=== PATIENT | male | born 1945 | race Caucasian/White ===

== ENCOUNTER → 2018-05-13 06:59 | Outpatient (CLI) | payer MEDICARE, OTHER, SELFPAY ==
[2018-05-13 08:12] LABS: Alanine Aminotransferase 82 IU/L (21-72); Albumin 4.4 g/dL (3.5-5.0); Albumin Globulin Ratio 1.5 (1.0-2.8); Alkaline Phosphatase 71 U/L (38-126); Aspartate Aminotransferase 58 IU/L (17-59); Bilirubin Total 0.7 mg/dL (0.2-1.3); Blood Urea Nitrogen 12 mg/dL (9-20); Calcium 9.1 mg/dL (8.4-10.2); Carbon Dioxide 27 mmol/L (22-32); Chloride 103 mmol/L (98-107); Cholesterol 196 mg/dL (140-199); Estimated Glomerular Filt Rate > 60.0 mL/min (>60); Globulin 2.9 g/dL (1.7-4.1); Glucose 104 mg/dL (80-110); HDL Cholesterol 26 mg/dL (40-60); HEMOLYSIS 37 (0-50); LDL Cholesterol Calculated 132 mg/dL (<100); Potassium 4.4 mmol/L (3.4-5.1); Sodium 144 mmol/L (137-145); Total Protein 7.3 g/dL (6.3-8.2); Triglycerides 188 mg/dL (35-150)
[2018-05-13 08:14] LABS: Add Manual Diff / Slide Review NO; Basophils Percent Auto 0.7 % (0-2); Eosinophils Percent Auto 1.1 % (2-4); Hemoglobin 16.4 g/dL (13.5-17.5); Lymphocytes Percent Auto 28.4 % (25-40); Mean Corpuscular HGB Conc 34.2 % (30-36); Mean Corpuscular Hemoglobin 31.4 PG (26-34); Mean Corpuscular Volume 91.9 fL (80-100); Monocytes Percent Auto 10.4 % (3-14); Neutrophils Absolute Auto 3800 /uL (3000-5900); Neutrophils Percent Auto 59.4 % (50-75); Platelet Count 188 X10^3/uL (150-400); Red Blood Cell Count 5.22 X10^6/uL (4.5-5.9); Red Cell Distribution Width 13.7 % (11.6-14.8); White Blood Cell Count 6.3 X10^3/uL (4.5-11.0)
[2018-05-13 08:33] LABS: Prostate Specific Antigen Scrn 3.05 ng/mL (0.1-4.0)
[2018-05-13 09:08] LABS: Thyroid Stimulating Hormone 4.99 uIU/mL (0.47-4.68)
[2018-05-13 09:27] LABS: Hep C Virus Ab w/Reflex Quant NEGATIVE s/c (NEGATIVE)
== END ==
PROVIDERS: Family Provider Family Medicine; PCP Family Medicine; Visit Provider Family Medicine
DX: E78.5 Hyperlipidemia, unspecified (principal); I10 Essential (primary) hypertension; N40.1 Benign prostatic hyperplasia with lower urinary tract symptoms; Z00.00 Encounter for general adult medical examination without abnormal findings; Z11.59 Encounter for screening for other viral diseases; Z12.5 Encounter for screening for malignant neoplasm of prostate
CPT/HCPCS: 36415; 80053; 80061; 84443; 85025; 86803; G0103

== ENCOUNTER 2018-05-27 14:23 | Emergency (ER) | payer MEDICARE, OTHER, SELFPAY ==
[2018-05-27 14:23] VITALS: BP 151/85; PULSE 87; RESP 16; TEMP 36.9; O2SAT 96; BMI 44.7
--- NOTE | 2018-05-27 15:08 | DI.CT.S_ITS ---
PROCEDURE: CT KIDNEY URETER BLADDER (KUB) INDICATIONS: L flank pain TECHNIQUE: Noncontrast 5 mm thick sections acquired from the diaphragms to the symphysis. 5 mm thick coronal and sagittal reformats were then performed. For radiation dose reduction, the following was used: automated exposure control, adjustment of mA and/or kV according to patient size. COMPARISON: [facility], CT, KIDNEY/ URETER/BLADDER, 03/25/2017, 22:42. [facility], CT, IVP (ABD & PEL WWO CONTRAST), 12/18/2012, 11:03. FINDINGS: Image quality: Excellent. Lung bases: Lung bases are clear. Heart size is normal. Urinary system: Parenchymal atrophy of the left kidney is again identified with associated severe hydronephrosis and probable peripelvic cysts. There are bilateral nonobstructing renal calculi. No hydronephrosis the right kidney is evident. There is dilatation of the proximal left ureter, which is noted to contain a small calculus measuring approximately 3 x 3 x 3 mm (image 55, series 2). The previously seen large proximal left ureteral calculus is no longer evident. No ureteral calculi are evident on the right. There are no bladder calculi. Mild prominence of the urinary bladder wall is present. Other solid organs: The liver is diffusely hypodense when compared to the spleen. Areas of fatty sparing. The present in the region of the gallbladder fossa. No intrahepatic or extrahepatic biliary dilatation is evident. The spleen and adrenals are unremarkable. The pancreas is within normal limits. Peritoneum and bowel: Unenhanced bowel loops demonstrate normal wall thickness and caliber. No free fluid or air. No loculated fluid collections are seen. There is distal colonic diverticulosis. Nodes and vessels: No retroperitoneal or mesenteric adenopathy by size criteria. Aorta and inferior vena cava are normal in caliber. There is aortic atherosclerosis. Abdominal wall: No ventral hernias. Pelvis: No free pelvic fluid. No inguinal hernias or adenopathy. Bones: No suspicious bony lesions. No vertebral body compression fractures. Age-appropriate degenerative changes are evident involving the spine and pelvic joints. IMPRESSION: 1. 3 mm proximal left ureteral calculus at the ureteropelvic junction with corresponding severe hydronephrosis. 2. Bilateral renal calculi. 3. Prominent hepatic steatosis. 4. No bowel obstruction. Dictated by: Tolu Thorne M.D. on 05/27/2018 at 14:30 Approved by: Tolu Thorne M.D. on 05/27/2018 at 14:40
[2018-05-27] MEDS: HYDROMORPHONE 1 MG INJ IV (15:43)
[2018-05-27] MEDS: ONDANSETRON 4 MG/2 ML INJ IV (15:44)
[2018-05-27] MEDS: KETOROLAC 60 MG/2 ML VIAL 30 MG IV (15:44)
[2018-05-27] MEDS: SODIUM CHLORIDE 0.9% 1,000 ML 1000 ML IV (15:44)
[2018-05-27 15:51] LABS: Appearance Urine UA CLEAR; Bilirubin Urine UA NEGATIVE (NEGATIVE); Color Urine UA YELLOW; Glucose Urine UA NEGATIVE (Normal); Ketones Urine UA NEGATIVE (NEGATIVE); Leukocyte Esterase Urine UA NEGATIVE (NEGATIVE); Nitrite Urine UA NEGATIVE (Negative); Occult Blood Urine UA TRACE-LYSED (Negative); Protein Urine UA NEGATIVE (Negative); Urobilinogen Urine UA 0.2 E.U./dL (0.2)
[2018-05-27 16:00] LABS: RBC Urine 0-1/HPF (0-5/HPF)
[2018-05-27 16:01] LABS: Bacteria Urine Occasional (0-1); Culture Indicated Urine Specimen Cultured; Mucus Urine 1+ (Negative); Squamous Epithelial Cell Urine 0-1 /HPF; WBC Urine 5-10/HPF (0-5/HPF)
--- NOTE | 2018-05-27 16:26 | ED.MALEGU ---
HPI - Male Genitourinary General Chief complaint: Urogenital-Male Stated complaint: kidney stones Time Seen by Provider: 05/27/18 14:35 Source: patient Mode of arrival: ambulatory Limitations: no limitations History of Present Illness HPI Narrative: Patient presents the emergency department complaining of left flank pain. He states this feels like a kidney stone, of which he has had many in the past. Patient denies any dysuria, fever, or vomiting. He states he feels slightly nauseated. Patient has not seen a urologist in some time, although he does note that he has been treated with lithotripsy in the past for large stones. States otherwise, he usually lets the stones pass on their own. No other complaints at this time. Severity scale (1-10): 5 Quality: aching Relieving factors: none Exacerbating factors: none Related Data Home Medications Medication Instructions Recorded Confirmed aspirin 81 mg PO QDAY #0 03/26/17 hydrocodone-acetaminophen [[place]] 1 tab PO PRN #0 03/26/17 fexofenadine 180 mg PO DAILY 05/27/18 05/27/18 Previous Rx's Medication Instructions Recorded hydrocodone-acetaminophen 2 tab PO Q4-6H PRN #14 tab 05/27/18 ondansetron 4 mg PO Q6-8H PRN #10 tab 05/27/18 Allergies Allergy/AdvReac Type Severity Reaction Status Date / Time grass pollen [GRASS POLLEN] Allergy Mild RUNNY NOSE Unverified 10/16/17 13:09 Fvupsot-Kcv-Tdo Reductase Allergy Verified 05/27/18 14:33 Inhibitor Review of Systems Review of Systems All systems reviewed & are unremarkable except as noted in HPI and below Constitutional Denies chills, Denies fever(s), Denies lethargy and Denies weakness Eyes Denies change in vision, Denies eye discharge, Denies irritation and Denies loss of vision ENT Ears, Nose, Mouth, and Throat: Denies change in voice, Denies neck pain and Denies sore throat Cardiovascular Denies chest pain, Denies irregular heart rhythm, Denies lightheadedness, Denies palpitations, Denies dyspnea, Denies dyspnea on exertion and Denies orthopnea Respiratory Denies cough, Denies dyspnea, Denies dyspnea on exertion and Denies wheezing Gastrointestinal Gastrointestinal: Denies abdominal pain, Denies change in bowel habits, Denies diarrhea, Denies nausea and Denies vomiting Genitourinary Denies hematuria, Denies flank pain, Denies urinary incontinence and Denies urinary urgency Musculoskeletal Reports back pain (Left flank) and Denies neck pain Integumentary/Breasts Denies pruritus, Denies erythema, Denies rash and Denies wounds Neurologic Denies confusion, Denies loss of vision and Denies weakness Psychiatric Denies anxiety, Denies confusion, Denies depression, Denies homicidal ideation and Denies suicidal ideation Endocrine Denies palpitations Hematologic/Lymphatic Denies easy bruising Allergic/Immunologic Denies wheezing PFSH Medical History Kidney stones (Acute) Surgical History H/O lithotripsy (Acute) Social History Smoking Status: Former smoker Exam Initial Vital Signs Initial Vital Signs: Vital Signs Temperature 98.4 F 05/27/18 14:23 Pulse Rate 87 05/27/18 14:23 Respiratory Rate 16 05/27/18 14:23 Blood Pressure 151/85 H 05/27/18 14:23 Pulse Oximetry 96 05/27/18 14:23 Const General: cooperative and well developed Nutritional Appearance: well nourished Orientation: alert, awake, oriented x3 and not confused [facility] Head: normocephalic and atraumatic Ears: external ears normal Nose: external nose normal and No nasal discharge Face and sinus: face symmetric and No dry mucous membranes Mouth: oral mucosae normal and moist mucous membranes Teeth and gingiva: dentition normal Eyes General: appearance normal, both eyes and all related structures Eyelids: eyelids normal Conjunctivae: conjunctivae normal Sclera: sclerae normal Pupils: PERRL EOM: EOM intact bilaterally Neck Neck: normal visual inspection, trachea midline, No lymphadenopathy, No midline deformity and No JVD Lymphatic: No lymphedema Chest Chest: normal inspection of the chest Resp Effort & Inspection: normal respiratory effort, able to speak in complete sentences, no respiratory distress and no use of accessory muscles Auscultation: clear to auscultation bilaterally, no rales, no rhonchi and no wheezes Cardio Rate: regular rate Rhythm: regular rhythm Heart Sounds: no click, no gallops, no murmurs and no rubs Pulses: normal peripheral pulses GI Inspection: non-distended Palpation: soft, no hepatosplenomegaly, No guarding, No pulsatile mass and No tender Back/Spine/Pelvis Back: No CVA tenderness Cervical Spine: cervical ROM normal and No pain with cervical ROM Thoracic/Lumbar Spine: thoracic and lumbar spine normal to inspection Skin General: no rashes or lesions noted, No jaundice and No petechiae Neuro General: alert, oriented x3, gait normal and no focal motor deficits Speech: speech normal Extrem General: full ROM, no clubbing, cyanosis or edema, no pedal edema and no calf tenderness Psych Appearance: well kempt Mental Status: mental status grossly normal Attitude: cooperative Thought Content: normal and suicidality Judgment: judgment good Course Course Narrative: Patient is given a L of normal saline, as well as treated symptomatically with Zofran, Toradol, and Dilaudid. He was worked up with a CT scan of the abdomen and pelvis without contrast as well as a urinalysis. Orders Ordered: Discontinued Medications Hydromorphone HCl (Dilaudid) 1 mg IV NOW ONE Stop: 05/27/18 15:09 Last Admin: 05/27/18 15:43 Dose: 1 mg Sodium Chloride (Normal Saline 0.9%) 1,000 mls @ 1,000 mls/hr IV BOLUS ONE Stop: 05/27/18 16:07 Last Infusion: 05/27/18 16:30 Dose: 0 mls/hr Admin: 05/27/18 15:44 Dose: 1,000 mls/hr Ketorolac Tromethamine (Toradol) 30 mg IV NOW ONE Stop: 05/27/18 15:09 Last Admin: 05/27/18 15:44 Dose: 30 mg Ondansetron HCl (Zofran) 4 mg IV NOW ONE Stop: 05/27/18 15:09 Last Admin: 05/27/18 15:44 Dose: 4 mg Vital Signs - 8 hr 05/27/18 14:23 Temperature 98.4 F Pulse Rate 87 Respiratory Rate 16 Blood Pressure 151/85 H Pulse Oximetry 96 MDM - Male Genitourinary Medical Records Attestation: I reviewed the patient's medical records. Lab Data Attestation: I reviewed the patient's lab results. Lab Results 11/20/18 Range/Units 15:40 Urine Color Yellow Urine Appearance Clear Urine pH 5.0 (4.5-8.0) Ur Specific [place] 1.020 (1.000-1.035) Urine Protein Negative (Negative) Urine Glucose (UA) Negative (Normal) g/dL Urine Ketones Negative (NEGATIVE) Urine Occult Blood Trace-lysed (Negative) Urine Nitrate Negative (Negative) Urine Bilirubin Negative (NEGATIVE) Urine Urobilinogen 0.2 (0.2) E.U./dL Ur Leukocyte Esterase Negative (NEGATIVE) Urine RBC 0-1/hpf (0-5/HPF) Urine WBC 5-10/hpf H (0-5/HPF) Ur Squamous Epith Cells 0-1 /hpf Urine Bacteria Occasional (0-1) (None) Urine Mucus 1+ H (Negative) Ur Culture Indicated? Specimen cultured Micro UA Comment Not Reportable Imaging Data CT scan - abdomen: Radiologist's impression: PROCEDURE: CT KIDNEY URETER BLADDER (KUB) INDICATIONS: L flank pain TECHNIQUE: Noncontrast 5 mm thick sections acquired from the diaphragms to the symphysis. 5 mm thick coronal and sagittal reformats were then performed. For radiation dose reduction, the following was used: automated exposure control, adjustment of mA and/or kV according to patient size. COMPARISON: [facility], CT, KIDNEY/ URETER/BLADDER, 03/25/2017, 22:42. [facility], CT, IVP (ABD & PEL WWO CONTRAST), 12/18/2012, 11:03. FINDINGS: Image quality: Excellent. Lung bases: Lung bases are clear. Heart size is normal. Urinary system: Parenchymal atrophy of the left kidney is again identified with associated severe hydronephrosis and probable peripelvic cysts. There are bilateral nonobstructing renal calculi. No hydronephrosis the right kidney is evident. There is dilatation of the proximal left ureter, which is noted to contain a small calculus measuring approximately 3 x 3 x 3 mm (image 55, series 2). The previously seen large proximal left ureteral calculus is no longer evident. No ureteral calculi are evident on the right. There are no bladder calculi. Mild prominence of the urinary bladder wall is present. Other solid organs: The liver is diffusely hypodense when compared to the spleen. Areas of fatty sparing. The present in the region of the gallbladder fossa. No intrahepatic or extrahepatic biliary dilatation is evident. The spleen and adrenals are unremarkable. The pancreas is within normal limits. Peritoneum and bowel: Unenhanced bowel loops demonstrate normal wall thickness and caliber. No free fluid or air. No loculated fluid collections are seen. There is distal colonic diverticulosis. Nodes and vessels: No retroperitoneal or mesenteric adenopathy by size criteria. Aorta and inferior vena cava are normal in caliber. There is aortic atherosclerosis. Abdominal wall: No ventral hernias. Pelvis: No free pelvic fluid. No inguinal hernias or adenopathy. Bones: No suspicious bony lesions. No vertebral body compression fractures. Age-appropriate degenerative changes are evident involving the spine and pelvic joints. IMPRESSION: 1. 3 mm proximal left ureteral calculus at the ureteropelvic junction with corresponding severe hydronephrosis. 2. Bilateral renal calculi. 3. Prominent hepatic steatosis. 4. No bowel obstruction. Dictated by: Tolu Thorne M.D. on 05/27/2018 at 14:30 Approved by: Tolu Thorne M.D. on 05/27/2018 at 14:40 MDM Narrative Medical decision making narrative: patient was found to have a 3 mm left ureteral calculus at the ureteropelvic junction with hydronephrosis. I discussed with the patient that he will need to follow up to make sure that this is passing appropriately. Based on the size of the stone, it should be expected to pass without difficulty on its own. However, if the patient has not passed the stone are continues to be symptomatic after 1 week, he should follow-up with urology, or very least, his primary care physician. Patient is instructed to drink plenty of fluids. Discharge Plan Departure Patient Disposition: Home Clinical Impression: Calculus of distal left ureter Discharge Date/Time: 05/27/18 17:15 Interventions: ED Discharge Assessment Last Done: 05/27/18 17:14 Instructions: DI for Kidney Stones Activity Restrictions/Additional Instructions: Your CT scan shows a kidney stone that has traveled most of the way down your left ureter. This should be popping into your bladder soon. You may use the nausea and pain medication, as needed. Prescriptions: New hydrocodone-acetaminophen 5-325 mg tablet 2 tab PO Q4-6H PRN (Reason: pain) Qty: 14 RF: 0 ondansetron 4 mg tablet,disintegrating 4 mg PO Q6-8H PRN (Reason: nausea and vomiting) Qty: 10 RF: 0 No Action aspirin 81 MG tablet,delayed release (DR/EC) 81 mg PO QDAY Qty: 0 RF: 0 hydrocodone-acetaminophen [[place]] 5 MG/325 MG tablet 1 tab PO PRNQty: 0 RF: 0 fexofenadine 180 mg tablet 180 mg PO DAILY RF: 0 Referrals: Rafita Vang MD [Primary Care Provider] -
[2018-05-27 16:29] VITALS: BP 139/66; PULSE 80; RESP 18; O2SAT 99
[2018-05-27 17:14] VITALS: BP 137/70; PULSE 82; RESP 16; O2SAT 97
--- NOTE | 2018-05-27 17:14 | PC.NURSE ---
called spouse pat at [phone], and she is en route
--- NOTE | 2018-05-27 17:15 | PC.NURSE ---
dc with ua cup, strainer, urinal, into personal belonging bags.
== END 2018-05-27 17:15 | disposition home or self-care (01) ==
PROVIDERS: Emergency Provider Emergency Medicine; PCP Family Medicine
DX: N20.1 Calculus of ureter (principal)
CPT/HCPCS: 36591; 74176; 81001; 87086; 96361; 96374; 96375; 99283; 99284; J1170; J1885; J2405

== ENCOUNTER 2018-09-17 05:58 | Emergency (ER) | payer MEDICARE, OTHER, SELFPAY ==
[2018-09-17 06:01] VITALS: BP 136/62; PULSE 92; RESP 18; TEMP 36.9; O2SAT 94; BMI 44.0
--- NOTE | 2018-09-17 06:20 | ED.MALEGU ---
HPI - Male Genitourinary General Chief complaint: Urogenital-Male Stated complaint: KIDNEY AREA SWOLLEN, PAIN Time Seen by Provider: 09/17/18 06:00 Source: patient Mode of arrival: ambulatory Limitations: no limitations History of Present Illness HPI Narrative: 73-year-old male former smoker with history of hypertension and kidney stones presents with severe left flank pain gradually worsening over the past 2 weeks. He states he has a longstanding history of kidney stones and he has been trying to pass this 1 for 2 weeks. He denies fever or shaking chills. He is not dizzy or weak or lightheaded. He has been given Percocet by his primary care provider which are no longer helping with his discomfort. He has had lithotripsy in the past. He denies dysuria, frequency or urgency MD Complaint: dysuria Onset (ago): week(s) Duration: constant Location: left flank Severity: mild Quality: aching and burning Relieving factors: none Exacerbating factors: movement Reports denies other symptoms Related Data Home Medications Medication Instructions Recorded Confirmed aspirin 81 mg PO QDAY #0 03/26/17 hydrocodone-acetaminophen [[place]] 1 tab PO PRN #0 03/26/17 fexofenadine 180 mg PO DAILY 05/27/18 05/27/18 Previous Rx's Medication Instructions Recorded hydrocodone-acetaminophen 2 tab PO Q4-6H PRN #14 tab 05/27/18 ondansetron 4 mg PO Q6-8H PRN #10 tab 05/27/18 Allergies Allergy/AdvReac Type Severity Reaction Status Date / Time grass pollen [GRASS POLLEN] Allergy Mild RUNNY NOSE Verified 09/17/18 06:38 Iakvrud-Jso-Tzl Reductase Allergy Verified 09/17/18 06:38 Inhibitor Review of Systems Constitutional Denies chills, Denies fever(s), Denies lethargy and Denies weakness Eyes Denies change in vision, Denies eye discharge, Denies irritation and Denies loss of vision ENT Ears, Nose, Mouth, and Throat: Denies change in voice, Denies neck pain and Denies sore throat Cardiovascular Denies chest pain, Denies irregular heart rhythm, Denies lightheadedness, Denies palpitations, Denies dyspnea, Denies dyspnea on exertion and Denies orthopnea Respiratory Denies cough, Denies dyspnea, Denies dyspnea on exertion and Denies wheezing Gastrointestinal Gastrointestinal: Denies abdominal pain, Denies change in bowel habits, Denies diarrhea, Denies nausea and Denies vomiting Genitourinary Denies hematuria, Reports flank pain, Denies urinary incontinence and Denies urinary urgency Musculoskeletal Denies neck pain Integumentary/Breasts Denies pruritus, Denies erythema, Denies rash and Denies wounds Neurologic Denies confusion, Denies loss of vision and Denies weakness Psychiatric Denies anxiety, Denies confusion, Denies depression, Denies homicidal ideation and Denies suicidal ideation Endocrine Denies palpitations Hematologic/Lymphatic Denies easy bruising Allergic/Immunologic Denies wheezing [facility] Medical History Kidney stones (Acute) Surgical History H/O lithotripsy (Acute) Social History Smoking Status: Former smoker Social History Smoking Status: Former smoker Exam Narrative Exam Narrative: GENERAL: 73-year-old male appears stated age, morbid obesity, obviously uncomfortable rubbing his left flank HEAD: Atraumatic. Normocephalic. No temporal or scalp tenderness. EYES: Pupils equal round and reactive. Extraocular motions intact. No scleral icterus. No injection or drainage. ENT: Nose without bleeding, purulent drainage or septal hematoma. Throat without erythema, tonsillar hypertrophy or exudate. Uvula midline. Airway patent. NECK: Trachea midline. No JVD or lymphadenopathy. Supple, nontender, no meningeal signs. CARDIOVASCULAR: Regular rate and rhythm without murmurs, gallops, or rubs. RESPIRATORY: Clear to auscultation. Breath sounds equal bilaterally. No wheezes, rales, or rhonchi. GASTROINTESTINAL: Abdomen soft, left lower quadrant and flank are tender to palpation, nondistended. No hepato-splenomegaly, or palpable masses. No guarding. EXTREMITIES: No clubbing, cyanosis, or edema. No joint tenderness, effusion, or edema noted. BACK: Nontender without deformity or crepitance. No flank tenderness. NEURO: AOx3. SKIN: No rash or erythema. Initial Vital Signs Initial Vital Signs: Vital Signs Temperature 98.4 F 09/17/18 06:01 Pulse Rate 92 H 09/17/18 06:01 Respiratory Rate 18 09/17/18 06:01 Blood Pressure 136/62 09/17/18 06:01 Pulse Oximetry 94 09/17/18 06:01 Course Orders Ordered: Discontinued Medications Sodium Chloride (Normal Saline 0.9%) 1,000 mls @ 150 mls/hr IV CONT AMALIA Last Infusion: 09/17/18 09:21 Dose: 150 mls/hr Admin: 09/17/18 06:45 Dose: 150 mls/hr Ketorolac Tromethamine (Toradol) 10 mg IV NOW ONE Stop: 09/17/18 06:20 Last Admin: 09/17/18 06:46 Dose: 10 mg Reevaluation(s) Reevaluation #1: Patient feeling much more comfortable after above-stated therapies Consultations Consultation #1: Dr. Thorpe urology at [facility] will be calling back shortly to provide definitive plan for ureteral stenting Time: 07:45 Vital Signs - 8 hr 09/17/18 06:01 09/17/18 06:35 Temperature 98.4 F Pulse Rate 92 H 92 H Respiratory Rate 18 Blood Pressure 136/62 Blood Pressure [Right Arm] 118/69 Pulse Oximetry 94 95 MDM - Male Genitourinary Medical Records Attestation: I reviewed the patient's medical records. Lab Data Attestation: I reviewed the patient's lab results. Result diagrams: 09/17/18 06:35 09/17/18 06:35 Lab Results 09/17/18 09/17/18 09/17/18 Range/Units 06:35 06:35 07:40 WBC 5.2 (4.5-11.0) X10^3/uL RBC 5.16 (4.5-5.9) X10^6/uL Hgb 16.0 (13.5-17.5) g/dL Hct 46.5 (41-53) % MCV 90.2 (80-100) fL MCH 31.0 (26-34) PG MCHC 34.4 (30-36) % RDW 13.8 (11.6-14.8) % Plt Count 166 (150-400) X10^3/uL Neut % (Auto) 60.8 (50-75) % Lymph % (Auto) 26.2 (25-40) % [place] % (Auto) 10.8 (3-14) % Eos % (Auto) 1.3 L (2-4) % Baso % (Auto) 0.9 (0-2) % Neut # (Auto) 3200 (1794-3277) /uL Lymph # (Auto) 1400 (9799-6791) /uL [place] # (Auto) 600 (0-900) /uL Eos # (Auto) 100 (0-450) /uL Baso # (Auto) 0 (0-100) /uL Sodium 139 (137-145) mmol/L Potassium 4.1 (3.4-5.1) mmol/L Chloride 104 (98-107) mmol/L Carbon Dioxide 24 (22-32) mmol/L BUN 13 (9-20) mg/dL Creatinine 0.90 (0.66-1.25) mg/dL Estimated GFR > 60.0 (>60) mL/min BUN/Creatinine Ratio 14.4 (6-22) Glucose 119 H (80-110) mg/dL Calcium 9.1 (8.4-10.2) mg/dL Urine RBC None seen (0-5/HPF) Urine WBC 10-30/hpf H (0-5/HPF) Ur Squamous Epith Cells 0-1 /hpf Calcium Oxalate Crystal Moderate H (None) Urine Bacteria Occasional (0-1) (None) Ur Culture Indicated? Specimen cultured Urine Dip Bedside Urine Glucose Negative Bedside Urine Bilirubin - Negative Bedside Urine Ketone - Negative Urine Specific [place] 1.025 Bedside Urine Occult Blood - Negative Bedside Urine pH 6.0 Bedside Urine Protein - Negative Bedside Urine Urobilinogen +/- 1mg Bedside Urine Nitrite - Negative Bedside Urine Leukocytes +/- [address] scan - abdomen: Radiologist's impression: 5 mm left proximal ureteral calculus causing severe left hydro ureteral nephrosis MDM Narrative Medical decision making narrative: 73-year-old male with history of stones has been attempting to pass this left-sided stone for the past 2 weeks, unsuccessfully. Imaging notes a proximal stone and a large hydro in the absence of elevated white count or change in renal function. His urologist has been contacted and will arrange for stenting in the near future Discharge Plan Departure Patient Disposition: Home Clinical Impression: Calculus of proximal left ureter, Hydroureter on left Hydronephrosis Qualifiers: Hydronephrosis type: with renal calculous obstruction Qualified Code(s): N13.2 - Hydronephrosis with renal and ureteral calculous obstruction Discharge Date/Time: 09/17/18 09:05 Interventions: ED Discharge Assessment Last Done: 09/17/18 09:19 Activity Restrictions/Additional Instructions: *You have been diagnosed with [Left sided kidney stone ] *What to do: *Continue to take medications as directed * you have an appointment tomorrow morning September 18 at 9:15 a.m. at the Urology [facility] at [facility] with Dr. Thorpe. Please arrive 15 minutes early to give yourself time to complete any necessary paperwork. *Return to ER if you should have any new, worsening or concerning symptoms, such as [ worsening pain, persistent vomiting, fever over 101 F, other bothersome symptoms] Prescriptions: No Action aspirin 81 MG tablet,delayed release (DR/EC) 81 mg PO QDAY Qty: 0 RF: 0 hydrocodone-acetaminophen [[place]] 5 MG/325 MG tablet 1 tab PO PRNQty: 0 RF: 0 fexofenadine 180 mg tablet 180 mg PO DAILY RF: 0 hydrocodone-acetaminophen 5-325 mg tablet 2 tab PO Q4-6H PRN (Reason: pain) Qty: 14 RF: 0 ondansetron 4 mg tablet,disintegrating 4 mg PO Q6-8H PRN (Reason: nausea and vomiting) Qty: 10 RF: 0 Referrals: Aiyana Thorpe MD [Non-Staff] - Ole Barron MD [Physician] -
--- NOTE | 2018-09-17 06:22 | PC.NURSE ---
Pt states L flank pain x 2 weeks. Hx of stones, pt states this feels like a stone.
--- NOTE | 2018-09-17 06:23 | ED_ITS ---
HPI - Male Genitourinary General Chief complaint: Urogenital-Male Stated complaint: KIDNEY AREA SWOLLEN, PAIN Time Seen by Provider: 09/17/18 06:00 Source: patient Mode of arrival: ambulatory Limitations: no limitations History of Present Illness HPI Narrative: 73-year-old male former smoker with history of hypertension and kidney stones presents with severe left flank pain gradually worsening over the past 2 weeks. He states he has a longstanding history of kidney stones and he has been trying to pass this 1 for 2 weeks. He denies fever or shaking chills. He is not dizzy or weak or lightheaded. He has been given Percocet by his primary care provider which are no longer helping with his discomfort. He has had lithotripsy in the past. He denies dysuria, frequency or urgency MD Complaint: dysuria Onset (ago): week(s) Duration: constant Location: left flank Severity: mild Quality: aching and burning Relieving factors: none Exacerbating factors: movement Reports denies other symptoms Related Data Home Medications Medication Instructions Recorded Confirmed aspirin 81 mg PO QDAY #0 03/26/17 hydrocodone-acetaminophen [[place]] 1 tab PO PRN #0 03/26/17 fexofenadine 180 mg PO DAILY 05/27/18 05/27/18 Previous Rx's Medication Instructions Recorded hydrocodone-acetaminophen 2 tab PO Q4-6H PRN #14 tab 05/27/18 ondansetron 4 mg PO Q6-8H PRN #10 tab 05/27/18 Allergies Allergy/AdvReac Type Severity Reaction Status Date / Time grass pollen [GRASS POLLEN] Allergy Mild RUNNY NOSE Verified 09/17/18 06:38 Rapiqqy-Oru-Ull Reductase Allergy Verified 09/17/18 06:38 Inhibitor Review of Systems Constitutional Denies chills, Denies fever(s), Denies lethargy and Denies weakness Eyes Denies change in vision, Denies eye discharge, Denies irritation and Denies loss of vision ENT Ears, Nose, Mouth, and Throat: Denies change in voice, Denies neck pain and De nies sore throat Cardiovascular Denies chest pain, Denies irregular heart rhythm, Denies lightheadedness, Denies palpitations, Denies dyspnea, Denies dyspnea on exertion and Denies orthopnea Respiratory Denies cough, Denies dyspnea, Denies dyspnea on exertion and Denies wheezing Gastrointestinal Gastrointestinal: Denies abdominal pain, Denies change in bowel habits, Denies diarrhea, Denies nausea and Denies vomiting Genitourinary Denies hematuria, Reports flank pain, Denies urinary incontinence and Denies urinary urgency Musculoskeletal Denies neck pain Integumentary/Breasts Denies pruritus, Denies erythema, Denies rash and Denies wounds Neurologic Denies confusion, Denies loss of vision and Denies weakness Psychiatric Denies anxiety, Denies confusion, Denies depression, Denies homicidal ideation and Denies suicidal ideation Endocrine Denies palpitations Hematologic/Lymphatic Denies easy bruising Allergic/Immunologic Denies wheezing [facility] Medical History Kidney stones (Acute) Surgical History H/O lithotripsy (Acute) Social History Smoking Status: Former smoker Social History Smoking Status: Former smoker Exam Narrative Exam Narrative: GENERAL: 73-year-old male appears stated age, morbid obesity, obviously uncomfortable rubbing his left flank HEAD: Atraumatic. Normocephalic. No temporal or scalp tenderness. EYES: Pupils equal round and reactive. Extraocular motions intact. No scleral icterus. No injection or drainage. ENT: Nose without bleeding, purulent drainage or septal hematoma. Throat without erythema, tonsillar hypertrophy or exudate. Uvula midline. Airway patent. NECK: Trachea midline. No JVD or lymphadenopathy. Supple, nontender, no meningeal signs. CARDIOVASCULAR: Regular rate and rhythm without murmurs, gallops, or rubs. RESPIRATORY: Clear to auscultation. Breath sounds equal bilaterally. No wheezes, rales, or rhonchi. GASTROINTESTINAL: Abdomen soft, left lower quadrant and flank are tender to palpation, nondistended. No hepato-splenomegaly, or palpable masses. No guarding. EXTREMITIES: No clubbing, cyanosis, or edema. No joint tenderness, effusion, or edema noted. BACK: Nontender without deformity or crepitance. No flank tenderness. NEURO: AOx3. SKIN: No rash or erythema. Initial Vital Signs Initial Vital Signs: Vital Signs Temperature 98.4 F 09/17/18 06:01 Pulse Rate 92 H 09/17/18 06:01 Respiratory Rate 18 09/17/18 06:01 Blood Pressure 136/62 09/17/18 06:01 Pulse Oximetry 94 09/17/18 06:01 Course Orders Ordered: Discontinued Medications Sodium Chloride (Normal Saline 0.9%) 1,000 mls @ 150 mls/hr IV CONT AMALIA Last Infusion: 09/17/18 09:21 Dose: 150 mls/hr Admin: 09/17/18 06:45 Dose: 150 mls/hr Ketorolac Tromethamine (Toradol) 10 mg IV NOW ONE Stop: 09/17/18 06:20 Last Admin: 09/17/18 06:46 Dose: 10 mg Reevaluation(s) Reevaluation #1: Patient feeling much more comfortable after above-stated therapies Consultations Consultation #1: Dr. Thorpe urology at [facility] will be calling back shortly to provide definitive plan for ureteral stenting Time: 07:45 Vital Signs - 8 hr 09/17/18 06:01 09/17/18 06:35 Temperature 98.4 F Pulse Rate 92 H 92 H Respiratory Rate 18 Blood Pressure 136/62 Blood Pressure [Right Arm] 118/69 Pulse Oximetry 94 95 MDM - Male Genitourinary Medical Records Attestation: I reviewed the patient's medical records. Lab Data Attestation: I reviewed the patient's lab results. Result diagrams: 09/17/18 06:35 09/17/18 06:35 Lab Results 09/17/18 09/17/18 09/17/18 Range/Units 06:35 06:35 07:40 WBC 5.2 (4.5-11.0) X10^3/uL RBC 5.16 (4.5-5.9) X10^6/uL Hgb 16.0 (13.5-17.5) g/dL Hct 46.5 (41-53) % MCV 90.2 (80-100) fL MCH 31.0 (26-34) PG MCHC 34.4 (30-36) % RDW 13.8 (11.6-14.8) % Plt Count 166 (150-400) X10^3/uL Neut % (Auto) 60.8 (50-75) % Lymph % (Auto) 26.2 (25-40) % [place] % (Auto) 10.8 (3-14) % Eos % (Auto) 1.3 L (2-4) % Baso % (Auto) 0.9 (0-2) % Neut # (Auto) 3200 (5527-9050) /uL Lymph # (Auto) 1400 (9661-5671) /uL [place] # (Auto) 600 (0-900) /uL Eos # (Auto) 100 (0-450) /uL Baso # (Auto) 0 (0-100) /uL Sodium 139 (137-145) mmol/L Potassium 4.1 (3.4-5.1) mmol/L Chloride 104 (98-107) mmol/L Carbon Dioxide 24 (22-32) mmol/L BUN 13 (9-20) mg/dL Creatinine 0.90 (0.66-1.25) mg/dL Estimated GFR > 60.0 (>60) mL/min BUN/Creatinine Ratio 14.4 (6-22) Glucose 119 H (80-110) mg/dL Calcium 9.1 (8.4-10.2) mg/dL Urine RBC None seen (0-5/HPF) Urine WBC 10-30/hpf H (0-5/HPF) Ur Squamous Epith Cells 0-1 /hpf Calcium Oxalate Crystal Moderate H (None) Urine Bacteria Occasional (0-1) (None) Ur Culture Indicated? Specimen cultured Urine Dip Bedside Urine Glucose Negative Bedside Urine Bilirubin - Negative Bedside Urine Ketone - Negative Urine Specific [place] 1.025 Bedside Urine Occult Blood - Negative Bedside Urine pH 6.0 Bedside Urine Protein - Negative Bedside Urine Urobilinogen +/- 1mg Bedside Urine Nitrite - Negative Bedside Urine Leukocytes +/- [address] scan - abdomen: Radiologist's impression: 5 mm left proximal ureteral calculus causing severe left hydro ureteral nephrosis MDM Narrative Medical decision making narrative: 73-year-old male with history of stones has been attempting to pass this left-sided stone for the past 2 weeks, unsuccessfully. Imaging notes a proximal stone and a large hydro in the absence of elevated white count or change in renal function. His urologist has been contacted and will arrange for stenting in the near future Discharge Plan Departure Patient Disposition: Home Clinical Impression: Calculus of proximal left ureter, Hydroureter on left Hydronephrosis Qualifiers: Hydronephrosis type: with renal calculous obstruction Qualified Code(s): N13.2 - Hydronephrosis with renal and ureteral calculous obstruction Discharge Date/Time: 09/17/18 09:05 Interventions: ED Discharge Assessment Last Done: 09/17/18 09:19 Activity Restrictions/Additional Instructions: *You have been diagnosed with [Left sided kidney stone ] *What to do: *Continue to take medications as directed * you have an appointment tomorrow morning September 18 at 9:15 a.m. at the Urology Clinic at [facility] with Dr. Thorpe. Please arrive 15 minutes early to give yourself time to complete any necessary paperwork. *Return to ER if you should have any new, worsening or concerning symptoms, such as [ worsening pain, persistent vomiting, fever over 101 F, other bothersome symptoms] Prescriptions: No Action aspirin 81 MG tablet,delayed release (DR/EC) 81 mg PO QDAY Qty: 0 RF: 0 hydrocodone-acetaminophen [[place]] 5 MG/325 MG tablet 1 tab PO PRNQty: 0 RF: 0 fexofenadine 180 mg tablet 180 mg PO DAILY RF: 0 hydrocodone-acetaminophen 5-325 mg tablet 2 tab PO Q4-6H PRN (Reason: pain) Qty: 14 RF: 0 ondansetron 4 mg tablet,disintegrating 4 mg PO Q6-8H PRN (Reason: nausea and vomiting) Qty: 10 RF: 0 Referrals: Aiyana Thorpe MD [Non-Staff] - Ole Barron MD [Physician] -
[2018-09-17 06:35] VITALS: BP 118/69; PULSE 92; O2SAT 95
[2018-09-17] MEDS: SODIUM CHLORIDE 0.9% 1,000 ML 150 ML IV (06:45)
--- NOTE | 2018-09-17 06:45 | DI.CT.S_ITS ---
PROCEDURE: CT KIDNEY URETER BLADDER (KUB) INDICATIONS: severe flank pain, history of stones TECHNIQUE: Noncontrast 5 mm thick sections acquired from the diaphragms to the symphysis. 5 mm thick coronal and sagittal reformats were then performed. For radiation dose reduction, the following was used: automated exposure control, adjustment of mA and/or kV according to patient size. COMPARISON: [facility], CT, CT KIDNEY URETER BLADDER (KUB), 05/27/2018, 15:13. FINDINGS: Image quality: Excellent. Lung bases: Lung bases are clear. Heart size is normal. Urinary system: Right kidney: Two 3 mm nonobstructing calculi. No hydronephrosis. No masses. Right ureter: Unremarkable without stone. Left kidney: 4 mm nonobstructing upper pole stone. Severe hydronephrosis. Significant loss of cortical thickness. Left collecting system: Probable chronic UPJ obstruction. Left ureter: 5 mm obstructing proximal ureteral stone. Bladder: Mild diffuse bladder wall thickening. Other solid organs: There is marked diffuse hepatic steatosis. No obvious liver mass. Focal fatty sparing in multiple locations immediately adjacent to the gallbladder. Gallbladder is unremarkable. Pancreas is normal in contours. Spleen is normal in size. No adrenal nodules. Peritoneum and bowel: Unenhanced bowel loops demonstrate normal wall thickness and caliber. No free fluid or air. Sigmoid diverticulosis without evidence of diverticulitis. Nodes and vessels: No retroperitoneal or mesenteric adenopathy by size criteria. Aorta and inferior vena cava are normal in caliber. Abdominal wall: No ventral hernias. Pelvis: No free pelvic fluid. No inguinal hernias or adenopathy. Prostate enlargement. Bones: No suspicious bony lesions. No vertebral body compression fractures. IMPRESSION: 1. A 5 mm stone obstructs the proximal left ureter. 2. 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 3. Multiple bilateral nonobstructing renal stones. 4. Mild thickening of the bladder wall. Prostate enlargement. 5. Sigmoid diverticulosis. Comment: A preliminary report was provided by [email or web address] at the time of the study. Dictated by: Jerry Ervin M.D. on 09/17/2018 at 7:58 Approved by: eJrry Ervin M.D. on 09/17/2018 at 8:07
[2018-09-17 06:46] LABS: Add Manual Diff / Slide Review NO; Basophils Absolute Auto 0 /uL (0-100); Basophils Percent Auto 0.9 % (0-2); Eosinophils Absolute Auto 100 /uL (0-450); Eosinophils Percent Auto 1.3 % (2-4); Hematocrit 46.5 % (41-53); Lymphocytes Absolute Auto 1400 /uL (1100-4500); Lymphocytes Percent Auto 26.2 % (25-40); Mean Corpuscular HGB Conc 34.4 % (30-36); Mean Corpuscular Volume 90.2 fL (80-100); Monocytes Absolute Auto 600 /uL (0-900); Monocytes Percent Auto 10.8 % (3-14); Neutrophils Absolute Auto 3200 /uL (1500-7000); Neutrophils Percent Auto 60.8 % (50-75); Platelet Count 166 X10^3/uL (150-400); Red Blood Cell Count 5.16 X10^6/uL (4.5-5.9); Red Cell Distribution Width 13.8 % (11.6-14.8); White Blood Cell Count 5.2 X10^3/uL (4.5-11.0)
[2018-09-17] MEDS: KETOROLAC 30 MG/ML VIAL 10 MG IV (06:46)
[2018-09-17 06:59] LABS: BUN Creatinine Ratio 14.4 (6-22); Blood Urea Nitrogen 13 mg/dL (9-20); Calcium 9.1 mg/dL (8.4-10.2); Carbon Dioxide 24 mmol/L (22-32); Chloride 104 mmol/L (98-107); Estimated Glomerular Filt Rate > 60.0 mL/min (>60); Glucose 119 mg/dL (80-110); HEMOLYSIS 39 (0-50); Potassium 4.1 mmol/L (3.4-5.1); Sodium 139 mmol/L (137-145)
[2018-09-17 07:00] VITALS: BP 122/62; PULSE 83; RESP 16; O2SAT 95
[2018-09-17 08:30] VITALS: BP 137/79; PULSE 81; RESP 16
[2018-09-17 08:34] LABS: Bacteria Urine Occasional (0-1); Calcium Oxalate Crystals Urine Moderate; Culture Indicated Urine Specimen Cultured; RBC Urine None Seen (0-5/HPF); Squamous Epithelial Cell Urine 0-1 /HPF; WBC Urine 10-30/HPF (0-5/HPF)
[2018-09-17 09:09] VITALS: BP 125/66; PULSE 81; RESP 16; O2SAT 99
== END 2018-09-17 09:05 | disposition home or self-care (01) ==
PROVIDERS: Emergency Provider Emergency Medicine; PCP Family Medicine
DX: N20.1 Calculus of ureter (principal); N13.4 Hydroureter; N13.2 Hydronephrosis with renal and ureteral calculous obstruction
CPT/HCPCS: 36591; 74176; 80048; 81003; 81015; 85025; 87086; 96361; 96374; 99283; 99284; J1885

== ENCOUNTER → 2018-09-25 06:55 | Outpatient (CLI) | payer MEDICARE, OTHER, SELFPAY | PROVIDERS: Family Provider Family Medicine; PCP Family Medicine; Visit Provider Urology | DX: N20.1 Calculus of ureter (principal); N13.1 Hydronephrosis with ureteral stricture, not elsewhere classified | CPT/HCPCS: 87086 ==

== ENCOUNTER → 2018-10-10 09:06 | Outpatient (CLI) | payer MEDICARE, OTHER, SELFPAY ==
--- NOTE | 2018-10-10 | DI.US.S_ITS ---
PROCEDURE: US RENAL COMPLETE INDICATIONS: HISTORY OF HYDRONEPHROSIS TECHNIQUE: Real-time scanning was performed of the kidneys and bladder, with image documentation. COMPARISON: [facility], CT, CT KIDNEY URETER BLADDER (KUB), 09/17/2018, 6:21. [facility], CT, CT KIDNEY URETER BLADDER (KUB), 05/27/2018, 15:13. FINDINGS: Kidneys: Kidneys are normal in size. Right kidney measures 13.2 cm long; left kidney measures 12.3 cm long. Right renal cortical thickness is 1 cm; left renal cortical thickness is 1.3 cm. Renal cortical echotexture is normal. There is moderate left-sided hydronephrosis. No right-sided hydronephrosis. There is a nonobstructing 1 cm stone within the mid right kidney. No suspicious solid mass lesions. Bladder: Pre-void bladder volume is 200 and mL. Post-void residual is 0 mL. Pre-void images demonstrate no intraluminal masses or stones. On pre-void images, neither of the ureteral jets are noted with color Doppler interrogation. (Of note, ureteral jets may not be detectable in up to 25% of cases due to insufficient differences in specific gravity between ureteral and bladder urine). Miscellaneous: No free pelvic fluid. IMPRESSION: Moderate left-sided hydronephrosis. There is a 1 cm nonobstructing right-sided kidney stone. Dictated by: Kingston Pinon M.D. on 10/10/2018 at 9:29 Approved by: Kingston Pinon M.D. on 10/10/2018 at 9:31
== END ==
PROVIDERS: Family Provider Family Medicine; PCP Family Medicine; Visit Provider Urology
DX: N13.2 Hydronephrosis with renal and ureteral calculous obstruction (principal)
CPT/HCPCS: 76770

== ENCOUNTER → 2018-11-17 10:14 | Outpatient (CLI) | payer MEDICARE, OTHER, SELFPAY ==
--- NOTE | 2018-11-17 | DI.US.S_ITS ---
PROCEDURE: US RENAL COMPLETE INDICATIONS: HYDRONEPHROSIS TECHNIQUE: Real-time scanning was performed of the kidneys and bladder, with image documentation. COMPARISON: , , RENAL COMPLETE, 10/10/2018, 9:32. FINDINGS: Kidneys: Kidneys are normal in size. Right kidney measures 13.0 cm long; left kidney measures 12.6 cm long. Right renal cortical thickness is 1.1 cm; left renal cortical thickness is 1.1 cm. Renal cortical echotexture is normal. No right-sided hydronephrosis there is a 5 mm nonobstructive calculus at the mid kidney on the right. There is no left-sided nephrolithiasis but there is mild hydronephrosis on the left. No suspicious solid mass lesions. Bladder: Pre-void bladder volume is 193 mL. Post-void residual is 13 mL. Pre-void images demonstrate no intraluminal masses or stones. On pre-void images, bilateral ureteral jets are noted with color Doppler interrogation. (Of note, ureteral jets may not be detectable in up to 25% of cases due to insufficient differences in specific gravity between ureteral and bladder urine). Miscellaneous: No free pelvic fluid. IMPRESSION: 5 mm nonobstructive right renal mid kidney collecting system calculus is incidentally noted. No hydronephrosis is associated. There also is a finding on the left, of mild left hydronephrosis, chronicity uncertain. No left-sided urinary tract stone is found. Normal bladder function. Dictated by: Jd Nelson M.D. on 11/17/2018 at 11:17 Approved by: Jd Nelson M.D. on 11/17/2018 at 11:19
== END ==
PROVIDERS: Family Provider Family Medicine; PCP Family Medicine; Visit Provider Urology
DX: N13.39 Other hydronephrosis (principal); N20.0 Calculus of kidney
CPT/HCPCS: 76770

== ENCOUNTER 2019-04-22 14:50 | Emergency (ER) | payer MEDICARE, OTHER, SELFPAY ==
[2019-04-22 14:56] VITALS: BP 168/94; PULSE 97; RESP 20; TEMP 36.7; O2SAT 97
[2019-04-22 15:35] LABS: Bacteria Urine None Seen; RBC Urine None Seen (0-5/HPF)
[2019-04-22 15:58] LABS: Culture Indicated Urine Specimen Cultured; WBC Urine 5-10/HPF (0-5/HPF)
--- NOTE | 2019-04-22 16:37 | DI.CT.S_ITS ---
PROCEDURE: CT KIDNEY URETER BLADDER (KUB) INDICATIONS: R flank pain, h/o kidney stones TECHNIQUE: Noncontrast 5 mm thick sections acquired from the diaphragms to the symphysis. 5 mm thick coronal and sagittal reformats were then performed. For radiation dose reduction, the following was used: automated exposure control, adjustment of mA and/or kV according to patient size. COMPARISON: [facility], CT, CT KIDNEY URETER BLADDER (KUB), 09/17/2018, 6:21. FINDINGS: Image quality: Excellent. Lung bases: Bibasilar scarring/atelectasis is seen. Heart size is enlarged, and a pericardial effusion. Coronary artery calcifications are seen.. Urinary system: Left kidney is enlarged in size with moderate perinephric fat stranding. Severe left-sided hydronephrosis and proximal hydroureter is again seen, unchanged or slightly progressed since previous study. 5 mm proximal left ureteral stone is again seen, unchanged from previous study. Bilateral nonobstructing renal calculi are again noted, unchanged in size and appearance from previous study. No right-sided hydronephrosis. Normal appearing right ureter is seen. Mild diffuse bladder wall thickening is again seen. No calcified bladder stones. Enlarged prostate gland with mass effect of floor of urinary bladder is again seen. Other solid organs: Liver is normal in size. There is hepatic steatosis. Gallbladder is within normal limits. Pancreas is normal in contours. Spleen is normal in size. No adrenal nodules. Peritoneum and bowel: Unenhanced bowel loops demonstrate normal wall thickness and caliber. No free fluid or air. Small hiatal hernia is again seen. Nodes and vessels: No retroperitoneal or mesenteric adenopathy by size criteria. Aorta and inferior vena cava are normal in caliber. Abdominal wall: No ventral hernias. Pelvis: No free pelvic fluid. No inguinal hernias or adenopathy. Bones: No suspicious bony lesions. No vertebral body compression fractures. Grade 1 anterolisthesis of L4 on L5 is again noted and unchanged. IMPRESSION: 1. Severe left-sided hydronephrosis and moderate left perinephric fat stranding not significantly changed from previous study. 5 mm obstructing left proximal ureteral stone is again seen with possible superimposed left UPJ stenosis, unchanged in appearance from previous study. 2. Nonobstructing bilateral renal calculi. No right-sided hydronephrosis. 3. Mild diffuse bladder wall thickening. No discrete bladder wall mass. Mildly enlarged prostate gland with mass effect of floor of urinary bladder. 4. No bowel obstruction. No free fluid or air. Hepatic steatosis. Dictated by: Claude Velazquez M.D. on 04/22/2019 at 17:32 Approved by: Claude Velazquez M.D. on 04/22/2019 at 17:39
[2019-04-22] MEDS: KETOROLAC 60 MG/2 ML VIAL 30 MG IM (16:48)
[2019-04-22] MEDS: HYDROMORPHONE 1 MG INJ 2 MG IM (16:49)
--- NOTE | 2019-04-22 17:10 | ED_ITS ---
HPI - Abdominal Pain General Chief Complaint: Abdominal Pain Stated Complaint: Kidney Stones Time Seen by Provider: 04/22/19 15:10 Source: patient Mode of arrival: Ambulatory Limitations: no limitations History of Present Illness HPI narrative: Patient comes emergency department complaining of left flank pain for the last few days. Patient states that feels like the kidney stones he has had in the past. He states he has been a little bit nauseated but has had no vomiting. No dysuria. No fevers. No gross hematuria. Patient states his last CT scan was about a year ago. Related Data Home Medications Medication Instructions Recorded Confirmed aspirin 81 mg PO DAILY #0 03/26/17 fexofenadine 180 mg PO DAILY 05/27/18 04/22/19 atorvastatin 10 mg PO DAILY 04/22/19 04/22/19 cholecalciferol (vitamin D3) 1,000 unit PO DAILY 04/22/19 [Vitamin D3] fluticasone propionate 1 spray INTRANASAL DIRECTED 04/22/19 04/22/19 Previous Rx's Medication Instructions Recorded hydrocodone-acetaminophen 1 tab PO Q6H PRN #10 tab 04/22/19 Allergies Allergy/AdvReac Type Severity Reaction Status Date / Time grass pollen [GRASS POLLEN] Allergy Mild RUNNY NOSE Verified 09/17/18 06:38 [id number]-Btu Reductase Allergy Verified 09/17/18 06:38 Inhibitor Review of Systems Constitutional Constitutional: Denies chills, Denies fatigue, Denies fever(s), Denies frequent falls, Denies lethargy and Denies weakness Eyes Eyes: Denies change in vision, Denies eye discharge, Denies irritation and Denies loss of vision ENT Ears, Nose, Mouth, and Throat: Denies change in voice, Denies dizziness, Denies neck pain, Denies sore throat and Denies throat swelling Cardiovascular Cardiovascular: Denies chest pain, Denies irregular heart rhythm, Denies lightheadedness, Denies palpitations, Denies dyspnea, Denies dyspnea on exertion and Denies orthopnea Respiratory Respiratory: Denies cough, Denies dyspnea, Denies dyspnea on exertion and Denies wheezing Gastrointestinal Gastrointestinal: Reports abdominal pain (Flank pain, left), Denies change in bowel habits, Denies diarrhea, Denies nausea and Denies vomiting Genitourinary Genitourinary: Denies hematuria, Denies flank pain, Denies urinary incontinence and Denies urinary urgency Musculoskeletal Musculoskeletal: Denies back pain, Denies muscle weakness, Denies neck pain, Denies numbness and Denies tingling Integumentary/Breasts Skin/Breast: Denies pruritus, Denies erythema, Denies rash and Denies wounds Neurologic Neurologic: Denies behavioral changes, Denies confusion, Denies dizziness, Denies frequent falls, Denies loss of vision, Denies numbness, Denies tingling and Denies weakness Psychiatric Psychiatric: Denies anxiety, Denies behavioral changes, Denies confusion, Denies depression, Denies homicidal ideation and Denies suicidal ideation Endocrine Endocrine: Denies fatigue, Denies flushing and Denies palpitations Hematologic/Lymphatic Hematologic/Lymphatic: Denies easy bruising Allergic/Immunologic Allergic/Immunologic: Denies urticaria, Denies throat swelling and Denies wheezing Patient History Medical History Kidney stones (Acute) Surgical History H/O lithotripsy (Acute) Social History Smoking Status: Former smoker Social History Smoking Status: Former smoker alcohol intake frequency: other Substance Use Type: does not use Exam Initial Vital Signs Initial Vital Signs: Vital Signs Temperature 98.1 F 04/22/19 14:56 Pulse Rate 97 H 04/22/19 14:56 Respiratory Rate 20 04/22/19 14:56 Blood Pressure 168/94 H 04/22/19 14:56 Pulse Oximetry 97 04/22/19 14:56 Const General: cooperative and well developed Nutritional Appearance: well nourished Orientation: alert, awake, oriented x3 and not confused [facility] Head: normocephalic and atraumatic Ears: external ears normal Nose: external nose normal and No nasal discharge Face and sinus: face symmetric and No dry mucous membranes Mouth: oral mucosae normal and moist mucous membranes Teeth and gingiva: dentition normal Eyes General: appearance normal, both eyes and all related structures Eyelids: eyelids normal Conjunctivae: conjunctivae normal Sclera: sclerae normal Pupils: PERRL EOM: EOM intact bilaterally Neck Neck: normal visual inspection, trachea midline, No lymphadenopathy, No midline deformity and No JVD Lymphatic: No lymphedema Chest Chest: normal inspection of the chest Resp Effort & Inspection: normal respiratory effort, able to speak in complete sentences, no respiratory distress and no use of accessory muscles Auscultation: clear to auscultation bilaterally, no rales, no rhonchi and no wheezes Cardio Rate: regular rate Rhythm: regular rhythm Heart Sounds: no click, no gallops, no murmurs and no rubs Pulses: normal peripheral pulses GI Inspection: non-distended Palpation: soft, no hepatosplenomegaly, No guarding, No pulsatile mass and tender (Moderate, left flank) Back/Spine/Pelvis Back: No CVA tenderness Cervical Spine: cervical ROM normal and No pain with cervical ROM Thoracic/Lumbar Spine: thoracic and lumbar spine normal to inspection Skin General: no rashes or lesions noted, No jaundice and No petechiae Neuro General: alert, oriented x3, gait normal and no focal motor deficits Speech: speech normal Extrem General: full ROM, no clubbing, cyanosis or edema, no pedal edema and no calf tenderness Psych Appearance: well kempt Mental Status: mental status grossly normal Attitude: cooperative Thought Content: normal and suicidality Judgment: judgment good Course Course Course Narrative: Patient was treated symptomatically in the emergency department. He was sent for a CT scan KUB, which showed the continued finding of severe left hydronephrosis and an impacted ureteral stone. This appears to be a chronic finding for the patient, as it is essentially unchanged from previous studies. I discussed with the patient that he needs to follow up with Urology to determine what will be done, if anything, about this. The patient has been given symptomatic treatment for at home and the usual indications for return. Orders Ordered: Discontinued Medications Hydromorphone HCl (Dilaudid) 2 mg IM NOW ONE Stop: 04/22/19 16:37 Last Admin: 04/22/19 16:49 Dose: 2 mg Documented by: NIKA Ketorolac Tromethamine (Toradol) 30 mg IM NOW ONE Stop: 04/22/19 16:37 Last Admin: 04/22/19 16:48 Dose: 30 mg Documented by: NIKA Ondansetron HCl (Zofran Odt) 4 mg PO NOW ONE Stop: 04/22/19 16:52 Last Admin: 04/22/19 17:32 Dose: 4 mg Documented by: NIKA Vital Signs Vital signs: Vital Signs - 8 hr 04/22/19 14:56 Temperature 98.1 F Pulse Rate 97 H Respiratory Rate 20 Blood Pressure 168/94 H Pulse Oximetry 97 MDM - Abdominal Pain Medical Records Attestation: I reviewed the patient's medical records. Lab Data Attestation: I reviewed the patient's lab results. Labs: Lab Results 04/22/19 Range/Units 15:31 Urine RBC None seen (0-5/HPF) Urine WBC 5-10/hpf H (0-5/HPF) Urine Bacteria None seen (None) Ur Culture Indicated? Specimen cultured Point of care testing: Urine Dip Bedside Urine Glucose Negative Bedside Urine Bilirubin - Negative Bedside Urine Ketone - Negative Urine Specific [place] 1.010 Bedside Urine Occult Blood - Negative Bedside Urine pH 6.0 Bedside Urine Protein - Negative Bedside Urine Urobilinogen - Negative Bedside Urine Nitrite - Negative Bedside Urine Leukocytes + [address] scan - abdomen: Radiologist's impression: PROCEDURE: CT KIDNEY URETER BLADDER (KUB) INDICATIONS: R flank pain, h/o kidney stones TECHNIQUE: Noncontrast 5 mm thick sections acquired from the diaphragms to the symphysis. 5 mm thick coronal and sagittal reformats were then performed. For radiation dose reduction, the following was used: automated exposure control, adjustment of mA and/or kV according to patient size. COMPARISON: [facility], CT, CT KIDNEY URETER BLADDER (KUB), 09/17/2018, 6:21. FINDINGS: Image quality: Excellent. Lung bases: Bibasilar scarring/atelectasis is seen. Heart size is enlarged, and a pericardial effusion. Coronary artery calcifications are seen.. Urinary system: Left kidney is enlarged in size with moderate perinephric fat stranding. Severe left-sided hydronephrosis and proximal hydroureter is again seen, unchanged or slightly progressed since previous study. 5 mm proximal left ureteral stone is again seen, unchanged from previous study. Bilateral nonobstructing renal calculi are again noted, unchanged in size and appearance from previous study. No right-sided hydronephrosis. Normal appearing right ureter is seen. Mild diffuse bladder wall thickening is again seen. No calcified bladder stones. Enlarged prostate gland with mass effect of floor of urinary bladder is again seen. Other solid organs: Liver is normal in size. There is hepatic steatosis. Gallbladder is within normal limits. Pancreas is normal in contours. Spleen is normal in size. No adrenal nodules. Peritoneum and bowel: Unenhanced bowel loops demonstrate normal wall thickness and caliber. No free fluid or air. Small hiatal hernia is again seen. Nodes and vessels: No retroperitoneal or mesenteric adenopathy by size criteria. Aorta and inferior vena cava are normal in caliber. Abdominal wall: No ventral hernias. Pelvis: No free pelvic fluid. No inguinal hernias or adenopathy. Bones: No suspicious bony lesions. No vertebral body compression fractures. Grade 1 anterolisthesis of L4 on L5 is again noted and unchanged. IMPRESSION: 1. Severe left-sided hydronephrosis and moderate left perinephric fat stranding not significantly changed from previous study. 5 mm obstructing left proximal ureteral stone is again seen with possible superimposed left UPJ stenosis, unchanged in appearance from previous study. 2. Nonobstructing bilateral renal calculi. No right-sided hydronephrosis. 3. Mild diffuse bladder wall thickening. No discrete bladder wall mass. Mildly enlarged prostate gland with mass effect of floor of urinary bladder. 4. No bowel obstruction. No free fluid or air. Hepatic steatosis. Dictated by: Claude Velazquez M.D. on 04/22/2019 at 17:32 Approved by: Claude Velazquez M.D. on 04/22/2019 at 17:39 Discharge Plan Departure Patient Disposition: Home Clinical Impression: Kidney stones, Acute flank pain Discharge Date/Time: 04/22/19 18:42 Instructions: DI for Kidney Stones, DI for Flank Pain Activity Restrictions/Additional Instructions: Your CT scan continues to show a stone and dilation of your left kidney. Please follow up with Urology to determine what should be done next about this. Prescriptions: New hydrocodone-acetaminophen 5-325 mg tablet 1 tab PO Q6H PRN (Reason: pain) Qty: 10 RF: 0 No Action aspirin 81 MG tablet,delayed release (DR/EC) 81 mg PO DAILY Qty: 0 RF: 0 fexofenadine 180 mg tablet 180 mg PO DAILY RF: 0 atorvastatin 10 mg tablet 10 mg PO DAILY RF: 0 fluticasone propionate 50 mcg/actuation spray,suspension 1 spray INTRANASAL DIRECTED RF: 0 cholecalciferol (vitamin D3) [Vitamin D3] 1,000 unit capsule 1,000 unit PO DAILY RF: 0 Referrals: Bjorseth,Rafita, MD [Primary Care Provider] -
[2019-04-22 17:30] VITALS: BP 158/79; PULSE 70; RESP 18; O2SAT 99
[2019-04-22] MEDS: ONDANSETRON 4 MG ODT PO (17:32)
== END 2019-04-22 18:42 | disposition home or self-care (01) ==
PROVIDERS: Emergency Provider Emergency Medicine; Family Provider Family Medicine; PCP Family Medicine
DX: N20.0 Calculus of kidney (principal); Z87.442 Personal history of urinary calculi; R10.9 Unspecified abdominal pain
CPT/HCPCS: 74176; 81003; 81015; 87086; 96372; 99282; 99284; J1170; J1885

== ENCOUNTER 2020-12-03 11:55 | Emergency (ER) | payer MEDICARE, OTHER, SELFPAY ==
--- NOTE | 2020-12-03 12:04 | DI.RAD.S_ITS ---
PROCEDURE: XR FOOT RT MIN 3V INDICATIONS: large machine rolled over pts right leg/foot TECHNIQUE: 3 views of the foot were acquired. COMPARISON: None. FINDINGS: Bones: No fractures or dislocations. No suspicious bony lesions. Accessory ossicles noted. Midfoot osteoarthritis. Dorsal calcaneal bone spur. Soft tissues: No tibiotalar joint effusion. Achilles tendon appears normal. IMPRESSION: No fracture. No acute osseous lesion. If symptoms and/or clinical suspicion for pathology persists, further assessment with repeat radiographs (7-10 days) or advanced imaging (e.g. CT, MRI or bone scan) should be considered. Dictated by: Lucille Mittal MD, PhD on 12/03/2020 at 13:14 Approved by: Lucille Mittal MD, PhD on 12/03/2020 at 13:16
--- NOTE | 2020-12-03 12:04 | DI.RAD.S_ITS ---
PROCEDURE: XR ANKLE RT MIN 3V INDICATIONS: large machine rolled over pts right leg/foot TECHNIQUE: 3 views of the ankle were acquired. COMPARISON: None. FINDINGS: Bones: No fractures or dislocations. Ankle mortise is normally aligned. No suspicious bony lesions. Dorsal calcaneal bone spur. Os trigonum. Midfoot osteoarthritis. Soft tissues: No tibiotalar joint effusion. Achilles tendon appears normal. Soft tissue swelling is noted in ligamentous injury cannot be excluded. IMPRESSION: No fracture. No acute osseous lesion. If symptoms and/or clinical suspicion for pathology persists, further assessment with repeat radiographs (7-10 days) or advanced imaging (e.g. CT, MRI or bone scan) should be considered. Dictated by: Lucille Mittal MD, PhD on 12/03/2020 at 13:25 Approved by: Lucille Mittal MD, PhD on 12/03/2020 at 13:27
--- NOTE | 2020-12-03 12:04 | DI.RAD.S_ITS ---
PROCEDURE: XR TIBIA FUBULA RT 2V INDICATIONS: large machine rolled over pts right leg/foot TECHNIQUE: 2 views of the tibia and fibula were acquired. COMPARISON: None. FINDINGS: Bones: No fractures or dislocations. No suspicious bony lesions. Soft tissues: No suspicious soft tissue calcifications or masses. IMPRESSION: No fracture. No osseous lesion. If symptoms and/or clinical suspicion for pathology persists, further assessment with repeat radiographs (7-10 days) or advanced imaging (e.g. CT, MRI or bone scan) should be considered. Dictated by: Lucille Mittal MD, PhD on 12/03/2020 at 13:13 Approved by: Lucille Mittal MD, PhD on 12/03/2020 at 13:14
[2020-12-03 12:05] VITALS: BP 145/97; PULSE 111; RESP 24; TEMP 37; O2SAT 95; BMI 44.7
[2020-12-03 13:40] VITALS: BP 174/92; PULSE 89; RESP 14; O2SAT 96
--- NOTE | 2020-12-03 14:26 | ED_ITS ---
HPI - Extremity Injury (Lower) General Chief Complaint: Extremity Injury, Lower Stated Complaint: Rt Leg Injury Time Seen by Provider: 12/03/20 14:19 Source: patient Mode of arrival: Ambulatory Limitations: no limitations History of Present Illness HPI Narrative: 75M former smoker with history of kidney stones and hyperlipidemia presents with a chief complaint of a painful swelling region of his right lower extremity after an injury this afternoon. He states that he was working with a backhoe and attempted to put into park, not noticing he was on a bit of an incline and it rolled back and briefly pain in his right leg. He denies any head neck or back injury. He denies any involvement of chest or abdomen. He has no pain in hip or thigh, only concern is of small, superficial painful bump on his right lateral calf. He denies any numbness, tingling or weakness. He is ambulatory without much difficulty. Related Data Home Medications Medication Instructions Recorded Confirmed aspirin 81 mg PO DAILY #0 03/26/17 fexofenadine 180 mg PO DAILY 05/27/18 04/22/19 atorvastatin 10 mg PO DAILY 04/22/19 04/22/19 cholecalciferol (vitamin D3) 1,000 unit PO DAILY 04/22/19 [Vitamin D3] fluticasone propionate 1 spray INTRANASAL DIRECTED 04/22/19 04/22/19 Previous Rx's Medication Instructions Recorded hydrocodone-acetaminophen 1 tab PO Q6H PRN #10 tab 04/22/19 hydrocodone-acetaminophen 1 tab PO Q4-6H PRN #10 tab 12/03/20 Allergies Allergy/AdvReac Type Severity Reaction Status Date / Time grass pollen [GRASS POLLEN] Allergy Mild RUNNY NOSE Verified 12/03/20 12:05 Boigimn-Imc-Onn Reductase Allergy Verified 12/03/20 12:05 Inhibitor Review of Systems Constitutional Constitutional: Denies chills, Denies fatigue, Denies fever(s), Denies frequent falls, Denies lethargy and Denies weakness Eyes Eyes: Denies change in vision, Denies eye discharge, Denies irritation and Denies loss of vision ENT Ears, Nose, Mouth, and Throat: Denies change in voice, Denies dizziness, Denies neck pain, Denies sore throat and Denies throat swelling Cardiovascular Cardiovascular: Denies chest pain, Denies irregular heart rhythm, Denies lightheadedness, Denies palpitations, Denies dyspnea, Denies dyspnea on exertion and Denies orthopnea Respiratory Respiratory: Denies cough, Denies dyspnea, Denies dyspnea on exertion and Denies wheezing Gastrointestinal Gastrointestinal: Denies abdominal pain, Denies change in bowel habits, Denies diarrhea, Denies nausea and Denies vomiting Musculoskeletal Musculoskeletal: Denies neck pain and Denies numbness Comments: Right lateral calf pain Integumentary/Breasts Skin/Breast: Denies pruritus, Denies erythema, Denies rash and Denies wounds Neurologic Neurologic: Denies behavioral changes, Denies confusion, Denies dizziness, Denies frequent falls, Denies loss of vision, Denies numbness and Denies weakness Psychiatric Psychiatric: Denies anxiety, Denies behavioral changes, Denies confusion, Denies depression, Denies homicidal ideation and Denies suicidal ideation Endocrine Endocrine: Denies fatigue, Denies flushing and Denies palpitations Hematologic/Lymphatic Hematologic/Lymphatic: Denies easy bruising Allergic/Immunologic Allergic/Immunologic: Denies urticaria, Denies throat swelling and Denies wheezing Patient History Medical History Kidney stones Surgical History H/O lithotripsy Social History Smoking Status: Former smoker Smoking Status: Former smoker alcohol intake frequency: holidays/special occasions only Substance Use Type: does not use Exam Narrative Exam Narrative: GENERAL: [75] year old patient appears stated age. Well- nourished, well-developed patient, in mild distress. GCS 15 HEAD: Atraumatic. Normocephalic. EYES: Pupils equal round and reactive. Extraocular motions intact. No scleral icterus. No injection or drainage. ENT: Nose without bleeding, purulent drainage. Throat without erythema, tonsillar hypertrophy or exudate. Airway patent. NECK: Trachea midline. Non tender CARDIOVASCULAR: Regular rate and rhythm without murmurs, gallops, or rubs. RESPIRATORY: Clear to auscultation. Breath sounds equal bilaterally. No wheezes, rales, or rhonchi. GASTROINTESTINAL: Abdomen soft, non-tender, nondistended. EXTREMITIES: 3 x 4 cm painful, slightly firm and tender region of right lateral calf. This is closed, isolated and neurovascularly intact. Compartments are soft, no sensation or cap refill change. No edema or joint tenderness. BACK: Nontender without deformity or crepitance. No flank tenderness. NEURO: AOx3. SKIN: No rash or erythema of visible areas Initial Vital Signs Initial Vital Signs: Vital Signs Temperature 98.6 F 12/03/20 12:05 Pulse Rate 111 H 12/03/20 12:05 Respiratory Rate 24 12/03/20 12:05 Blood Pressure 145/97 H 12/03/20 12:05 Pulse Oximetry 95 12/03/20 12:05 Course Orders Ordered: ED Orders 12/03/20 12:04 XR ankle RT min 3V Stat XR foot RT min 3V Stat XR tibia fibula RT 2V Stat Vital Signs Vital signs: Vital Signs - 8 hr 12/03/20 12:05 12/03/20 13:40 12/03/20 15:10 Temperature 98.6 F Pulse Rate 111 H 89 82 Respiratory Rate 24 14 18 Blood Pressure 145/97 H 174/92 H 174/95 H Pulse Oximetry 95 96 96 MDM - Extremity Injury (Lower) Imaging Data Extremity x-ray #1: Radiologist's Impression: [address] [id number] ReportSigned Patient: Lauro Guallpa R#: [id number]: 5Acct:[id number]/Sex: 75 / MDate of Service: 12/03/20Loc: EDAccession Number: [id number] Procedure: XR ankle RT min 3V Ordering Provider: Molina Rudolph MD PROCEDURE: XR ANKLE RT MIN 3V INDICATIONS: large machine rolled over pts right leg/foot TECHNIQUE: 3 views of the ankle were acquired. COMPARISON: None. FINDINGS: Bones: No fractures or dislocations. Ankle mortise is normally aligned. No suspicious bony lesions. Dorsal calcaneal bone spur. Os trigonum. Midfoot osteoarthritis. Soft tissues: No tibiotalar joint effusion. Achilles tendon appears normal. Soft tissue swelling is noted in ligamentous injury cannot be excluded. IMPRESSION: No fracture. No acute osseous lesion. If symptoms and/or clinical suspicion for pathology persists, further assessment with repeat radiographs (7-10 days) or advanced imaging (e.g. CT, MRI or bone scan) should be considered. Dictated by: Lucille Mittal MD, PhD on 12/03/2020 at 13:25 Approved by: Lucille Mittal MD, PhD on 12/03/2020 at 13:27 Extremity x-ray #2: Radiologist's Impression: [address] [id number] ReportSigned Patient: Lauro Guallpa R#: [id number]: 1945ct:[id number]/Sex: 75 / MDate of Service: 12/03/20Loc: EDAccession Number: [id number] Procedure: XR foot RT min 3V Ordering Provider: Molina Rudolph MD PROCEDURE: XR FOOT RT MIN 3V INDICATIONS: large machine rolled over pts right leg/foot TECHNIQUE: 3 views of the foot were acquired. COMPARISON: None. FINDINGS: Bones: No fractures or dislocations. No suspicious bony lesions. Accessory ossicles noted. Midfoot osteoarthritis. Dorsal calcaneal bone spur. Soft tissues: No tibiotalar joint effusion. Achilles tendon appears normal. IMPRESSION: No fracture. No acute osseous lesion. If symptoms and/or clinical suspicion for pathology persists, further assessment with repeat radiographs (7-10 days) or advanced imaging (e.g. CT, MRI or bone scan) should be considered. Dictated by: Lucille Mittal MD, PhD on 12/03/2020 at 13:14 Approved by: Lucille Mittal MD, PhD on 12/03/2020 at 13:16 Extremity x-ray #3: Radiologist's Impression: Lauro Guallpa J 75 M [address] [id number] ReportSigned Patient: Lauro Guallpa R#: [id number]: 5Acct:[id number]/Sex: 75 / MDate of Service: 12/03/20Loc: EDAccession Number: [id number] Procedure: XR tibia fibula RT 2V Ordering Provider: Molina Rudolph MD PROCEDURE: XR TIBIA FUBULA RT 2V INDICATIONS: large machine rolled over pts right leg/foot TECHNIQUE: 2 views of the tibia and fibula were acquired. COMPARISON: None. FINDINGS: Bones: No fractures or dislocations. No suspicious bony lesions. Soft tissues: No suspicious soft tissue calcifications or masses. IMPRESSION: No fracture. No osseous lesion. If symptoms and/or clinical suspicion for pathology persists, further assessment with repeat radiographs (7-10 days) or advanced imaging (e.g. CT, MRI or bone scan) should be considered. Dictated by: Lucille Mittal MD, PhD on 12/03/2020 at 13:13 Approved by: Lucille Mittal MD, PhD on 12/03/2020 at 13:14 [facility] Narrative Medical decision making narrative: Patient appears to be quite sebastián and suffered only minor injury from this event. Fracture, dislocation considered but thought unlikely given exam and imaging. Compartment syndrome considered, however pain is minimal, neurovascular status is normal and compartments are soft. I did spend a significant amount time discussing what to look for regarding the potential of compartment syndrome and DVT moving forward. Questions have been answered to his apparent satisfaction Discharge Plan Departure Patient Disposition: Home Clinical Impression: Hematoma of right lower leg Instructions: DI for Leg Pain Activity Restrictions/Additional Instructions: *You have been diagnosed with [Right lateral calf hematoma, xrays look good and there is no fracture or dislocation ] *What to do: *Please continue to take your regular medications as directed. [ ] New medication prescriptions sent to your pharmacy: [ ] [x] New medication written as a paper prescription [ ] No new medications given *Please follow up with your primary care provider in 2-3 days, call for an appointment. Let them know you were seen in the Emergency Department and that we ask that you be seen in follow up. We will electronically transmit a record of today's note if your PCP is in our system *If you do not have a primary care provider please contact the [facility] Resource line at [phone]. They will ask some questions about your medical history and help get you set up with a doctor in the community. *Return to Emergency Department if you should have any new, worsening or concerning symptoms, such as [fever greater than 101 F, shaking chills, worsening pain, persistent vomiting, numbness, tingling, weakness or other bothersome symptoms] Prescriptions: New hydrocodone-acetaminophen 5-325 mg tablet 1 tab PO Q4-6H PRN (Reason: pain) Qty: 10 RF: 0 No Action aspirin 81 MG tablet,delayed release (DR/EC) 81 mg PO DAILY Qty: 0 RF: 0 fexofenadine 180 mg tablet 180 mg PO DAILY RF: 0 atorvastatin 10 mg tablet 10 mg PO DAILY RF: 0 fluticasone propionate 50 mcg/actuation spray,suspension 1 spray INTRANASAL DIRECTED RF: 0 cholecalciferol (vitamin D3) [Vitamin D3] 1,000 unit capsule 1,000 unit PO DAILY RF: 0 hydrocodone-acetaminophen 5-325 mg tablet 1 tab PO Q6H PRN (Reason: pain) Qty: 10 RF: 0 Referrals: Judi Aaron MD [Primary Care Provider] -
[2020-12-03 15:10] VITALS: BP 174/95; PULSE 82; RESP 18; O2SAT 96
== END 2020-12-03 15:11 | disposition home or self-care (01) ==
PROVIDERS: Emergency Provider Emergency Medicine; PCP Student in an Organized Health Care Education/Training Program
DX: S80.12XA Contusion of left lower leg, initial encounter (principal); W22.8XXA Striking against or struck by other objects, initial encounter
CPT/HCPCS: 73590; 73610; 73630; 99283

== ENCOUNTER → 2020-12-19 11:46 | Outpatient (CLI) | payer MEDICARE, OTHER, SELFPAY ==
--- NOTE | 2020-12-19 11:49 | DI.US.S_ITS ---
PROCEDURE: US PERIPH VENOUS LOW EXTREM RT INDICATIONS: RULE OUT DEEP VEIN THROMBOSIS TECHNIQUE: Real-time imaging, as well as color and pulse Doppler interrogation, were performed of the lower extremity deep veins from the inguinal ligament to the popliteal fossa. COMPARISON: None. FINDINGS: The common femoral, femoral and popliteal veins are normally compressible, and free of intraluminal thrombus. Color and pulse Doppler demonstrate normal phasic intraluminal flow. There is normal augmentation response to distal compression maneuver. Incidental complex hypoechoic area noted in the posterolateral calf measuring 8.0 x 7.4 x 1.8 cm IMPRESSION: No evidence of deep venous thrombosis, right lower extremity Incidental complex hypoechoic echogenicity in the subcutaneous posterior calf reflect old hematoma or disconnected popliteal cyst Dictated by: Kang Mathur M.D. on 12/19/2020 at 11:58 Approved by: Kang Mathur M.D. on 12/19/2020 at 12:04
== END ==
PROVIDERS: PCP Student in an Organized Health Care Education/Training Program; Referring Provider Internal Medicine; Visit Provider Internal Medicine
DX: M79.661 Pain in right lower leg (principal)
CPT/HCPCS: 93971

== ENCOUNTER → 2021-10-16 10:22 | Outpatient (CLI) | payer MEDICARE, OTHER, SELFPAY ==
--- NOTE | 2021-10-16 10:25 | DI.CT.S_ITS ---
PROCEDURE: CT KIDNEY URETER BLADDER (KUB) INDICATIONS: Atrophy of kidney (terminal). Left greater than right flank pain TECHNIQUE: Axial sections were acquired from the lung bases to the pubic symphysis. Coronal and sagittal reformats were performed. For radiation dose reduction, the following was used: automated exposure control, adjustment of mA and/or kV according to patient size. COMPARISON: [facility], CT, CT KIDNEY URETER BLADDER (KUB), 04/22/2019, 17:07. FINDINGS: Lower thorax: The lung bases are clear. Heart size normal. No hiatal hernia. Liver: Normal in size and attenuation. No contour deformity present. Biliary system: No calcified cholelithiasis or pericholecystic inflammation. No intra or extrahepatic bile duct dilatation. Pancreas: Unremarkable without mass or inflammation evident. Spleen: Normal in size and density. Adrenals: Normal morphology and density. Reproductive system: Unremarkable as visualized. Urinary system: There is left renal atrophy, extrarenal pelvis and nonobstructing renal calculi present. No hydronephrosis. On the right, there is non-obstructing renal calculi present as well, similar prior. No hydronephrosis. Urinary bladder is decompressed, the prostate remains enlarged at 4.9 x 5.8 cm Gastrointestinal system: The bowel is unremarkable without evidence of bowel obstruction or inflammation. The stomach appears unremarkable. Multiple diverticula arise from the sigmoid colon without evidence of diverticulitis. Appendix: No findings to suggest acute appendicitis. Peritoneal spaces: No mesenteric or retroperitoneal adenopathy. No free air. No free fluid. Vasculature: Aortic atherosclerotic vascular calcification noted without evidence of aneurysm. Abdominal wall: Abdominal wall intact without evidence of ventral or inguinal hernias. Musculoskeletal: Normal bone mineralization. Degenerative disc disease and arthropathy noted in lower lumbar spine. Mild grade 1 anterior spondylolisthesis at L4-5, degenerative. No acute fractures. IMPRESSION: 1. Bilateral nonobstructing renal calculi without hydronephrosis or obstructive uropathy. 2. Left renal atrophy is stable from the prior exam. 3. Prostatic hypertrophy and smooth with bladder wall thickening Approved by: Kang Mathur M.D. on 10/16/2021 at 12:34
== END ==
PROVIDERS: PCP Student in an Organized Health Care Education/Training Program; Referring Provider Urology; Visit Provider Urology
DX: N26.1 Atrophy of kidney (terminal) (principal); N20.0 Calculus of kidney; N40.0 Benign prostatic hyperplasia without lower urinary tract symptoms; K57.30 Diverticulosis of large intestine without perforation or abscess without bleeding; R10.9 Unspecified abdominal pain
CPT/HCPCS: 74176

== ENCOUNTER 2023-08-16 08:47 | Inpatient (IN) | payer MEDICARE, OTHER, SELFPAY ==
[2023-08-16] VITALS (19 sets, daily range): BP systolic 155–191; BP diastolic 83–106; PULSE 80–94; RESP 14–22; TEMP 36.1–36.4; O2SAT 94–99; BMI 48.8
--- NOTE | 2023-08-16 08:53 | DI.RAD.S_ITS ---
PROCEDURE: XR CHEST 1V INDICATIONS: SLURRED SPEECH x 25HRS TECHNIQUE: One view of the chest was acquired. COMPARISON: [facility], , CHEST 1 VIEW, 05/13/2016, 6:06. FINDINGS: Surgical changes and devices: None. Lungs and pleura: Lungs are clear. No pleural effusions or pneumothorax. Mediastinum: Mediastinal contours appear normal. Heart size is enlarged. Bones and chest wall: No suspicious bony lesions. Overlying soft tissues appear unremarkable. IMPRESSION: No acute pulmonary process. Dictated by: Ruth Lee M.D. on 08/16/2023 at 9:33 Approved by: Ruth Lee M.D. on 08/16/2023 at 9:33
--- NOTE | 2023-08-16 08:53 | DI.CT.S_ITS ---
PROCEDURE: CT HEAD/BRAIN WO CON INDICATIONS: SLURRED SPEECH x 25HRS TECHNIQUE: Noncontrast 4.5 mm thick angled axial sections acquired from the foramen magnum to the vertex, with coronal and sagittal reformats. For radiation dose reduction, the following was used: automated exposure control, adjustment of mA and/or kV according to patient size. COMPARISON: None. FINDINGS: Image quality: Diagnostic. CSF spaces: Basal cisterns are patent. No extra-axial fluid collections. The ventricles are symmetric in size and shape. Brain: No intracranial bleeds or masses. There is cerebral volume loss for age, with resultant ventricular and sulcal prominence. There are periventricular and deep white matter chronic small vessel ischemic changes. There is intracranial internal carotid artery atherosclerosis. Skull and face: Calvarium and visualized facial bones appear intact, without suspicious lesions. Sinuses: Visualized sinuses demonstrate mild mucosal thickening within the maxillary sinuses. IMPRESSION: 1. No acute intracranial process. 2. Moderate atrophy and chronic microvascular ischemic changes. Dictated by: Ruth Lee M.D. on 08/16/2023 at 9:24 Approved by: Ruth Lee M.D. on 08/16/2023 at 9:25
--- NOTE | 2023-08-16 08:53 | DI.CT.S_ITS ---
PROCEDURE: CT ANGIO HEAD AND NECK INDICATIONS: SLURRED SPEECH X 25HRS TECHNIQUE: After the administration of intravenous contrast, 1 mm thick sections acquired from the aortic arch through the Unga of [place]. 3-dimensional nrgutiy-wxrclpkuo-asywygxfdw (MIP) and/or volume rendering reformats were acquired of the central intracranial vasculature and neck separately. For radiation dose reduction, the following was used: automated exposure control, adjustment of mA and/or kV according to patient size. COMPARISON: None. FINDINGS: Image quality: Diagnostic. BRAIN: See separately dictated CT brain report 08/16/2023. HEAD CT ANGIOGRAPHY: Anterior circulation: Intracranial internal carotid arteries are normal in size and flow. The flow within the paired anterior cerebral arteries is normal and symmetric. The flow within the middle cerebral arteries is normal and symmetric. The anterior communicating artery is seen. No aneurysms are seen. Posterior circulation: The posterior circulation demonstrates a left vertebral artery dominance. Basilar artery and posterior cerebral arteries demonstrate no areas of hemodynamically significant stenosis, vascular occlusion or aneurysmal dilation. Posterior communicating arteries are within normal limits. Visualized portions of the vertebral arteries demonstrate normal caliber, and join to form a normal appearing basilar artery. Flow within the posterior cerebral arteries is normal and symmetric. No aneurysms are seen. NECK CT ANGIOGRAPHY: Carotid system: The great vessels demonstrate a conventional anatomy as they arise from the aortic arch. The origins of the common carotid arteries appear patent. The common carotid arteries demonstrate normal caliber and courses. The bifurcation regions are both widely patent. The internal carotid arteries demonstrate normal calibers and courses. Posterior circulation: The origins of the vertebral arteries both appear widely patent. The more superior extracranial portions of both vertebral arteries also demonstrate normal courses and calibers. They join to form a normal appearing basilar artery. Soft tissues: Visualized neck soft tissues demonstrate no suspicious abnormalities. Bones: No suspicious bony lesions. Visualized cervical spine appears normally aligned. IMPRESSION: No areas of hemodynamically significant stenosis, vascular occlusion or aneurysmal dilation within the anterior circulation. No areas of hemodynamically significant stenosis, vascular occlusion or aneurysmal dilation within the posterior circulation. No areas of hemodynamically significant stenosis, vascular occlusion or aneurysmal dilation within the neck vasculature. Any quantitative measurements of stenosis were performed using NASCET criteria. Dictated by: Ruth Lee M.D. on 08/16/2023 at 10:11 Approved by: Ruth Lee M.D. on 08/16/2023 at 10:15
--- NOTE | 2023-08-16 08:54 | ED.NEUROSD ---
HPI - Neuro Symptoms/Deficit General Chief Complaint: Neuro Symptoms/Deficit Stated Complaint: Stroke Time Seen by Provider: 08/16/23 08:48 History of Present Illness HPI Narrative: 78-year-old male with history of hypertension, hyperlipidemia presents by EMS from home for slurred speech for greater than 24 hours. Patient states that yesterday at around 8:00 a.m. his friends noticed that his speech seems slurred. Patient called EMS today because his speech did not seem to be improving. EMS did note slurred speech, maybe possible some right upper extremity drift. Patient took 2 baby aspirin prior to arrival. He states that he has not seen a primary care physician since before 2019 Related Data Home Medications Medication Instructions Recorded Confirmed aspirin 81 mg tablet,delayed 81 mg PO DAILY ##0 03/26/17 release fexofenadine 180 mg tablet 180 mg PO DAILY 05/27/18 04/22/19 atorvastatin 10 mg tablet 10 mg PO DAILY 04/22/19 04/22/19 cholecalciferol (vitamin D3) 25 1,000 unit PO DAILY 04/22/19 mcg (1,000 unit) capsule (Vitamin D3) fluticasone propionate 50 1 spray intranasal DIRECTED 04/22/19 04/22/19 mcg/actuation nasal spray,suspension Previous Rx's Medication Instructions Recorded hydrocodone 5 mg-acetaminophen 325 1 tab PO Q6H PRN pain #10 tabs 04/22/19 mg tablet hydrocodone 5 mg-acetaminophen 325 1 tab PO Q4-6H PRN pain #10 tabs 12/03/20 mg tablet Allergies Allergy/AdvReac Type Severity Reaction Status Date / Time grass pollen [GRASS POLLEN] Allergy Mild RUNNY NOSE Verified 12/03/20 12:05 Precupz-VWB-RsX Reductase Allergy Verified 12/03/20 12:05 Inhibitor [Hlajuig-Twf-Vxc Reductase Inhibitor] Review of Systems Review of Systems Narrative: Negative except as noted above Patient History Medical History (Updated 08/16/23 @ 10:47 by Tesha Richardson MD) Kidney stones Surgical History H/O lithotripsy Social History Smoking Status: Former smoker Smoking Status: Former smoker alcohol intake frequency: holidays/special occasions only Substance Use Type: does not use Exam Narrative Exam Narrative: Const: Awake, alert, no acute distress, nontoxic appearing, obese Cardiac: regular rate, regular rhythm RESP: unlabored, clear bilaterally, no wheezing GI: Atraumatic, soft, nontender MSK: Atraumatic, full range of motion, pulses equal Skin: Warm, Dry, intact, no rashes Neuro: AO x3, CN II-XII grossly intact, mild slurred speech, intelligible. No upper or lower extremity drift, no ataxia, sensation intact and equal bilaterally Initial Vital Signs Initial Vital Signs: Vital Signs Temperature 97.6 F 08/16/23 08:49 Pulse Rate 91 H 08/16/23 08:49 Respiratory Rate 22 08/16/23 08:49 Blood Pressure 180/83 H 08/16/23 08:49 Pulse Oximetry 97 08/16/23 08:49 Oxygen Delivery Method Room Air 08/16/23 08:49 Scores ABCD2 Age >= 60 years: yes Initial BP. Either SBP >= 140 or DBP >= 90.: yes Clinical features of the TIA: speech disturbance without weakness Duration of symptoms: >= 60 minutes History of diabetes: no ABCD2 Score: 5 NIH Stroke Scale Level of Conciousness: Alert, keenly responsive Ask month/age: Answers both questions correctly. Open/close eyes, close hand: Performs both tasks correctly Best gaze horizontal: Normal Visual hyman: No visual loss Facial palsy: Normal symetrical movement Left arm drift: No drift for full 10 sec Right arm drift: No drift for full 10 sec Left leg drift: No drift for full 5 sec Right leg drift: No drift for full 5 sec Limb ataxia: Absent Sensory on face/arms/legs: Normal, no sensory loss Best language: Mild to moderate, slurs some words Dysarthria: Mild to mod,some slurring Extinction or inattention: No abnormality Total NIH Stroke scale score: 2 Course Orders Ordered: ED Orders 08/16/23 08:53 CT angio head and neck Stat CT head/brain wo con Stat Chest [XR chest 1V] Stat UA Complete [Urinalysis and Microscopic] Stat 08/16/23 08:56 CBC Auto Diff [Complete Blood Count AUTO DIFF] Stat CMP [Comprehensive Metabolic Panel] Stat PT [Prothrombin Time INR] Stat TSH [Thyroid Stimulating Hormone] Stat Troponin & CK Cardiac Panel Stat 08/16/23 09:19 EKG-12 Lead Stat Discontinued Medications Aspirin (Aspirin Ec 81 Mg Tablet) 162 mg PO NOW ONE Stop: 08/16/23 08:55 Last Admin: 08/16/23 09:40 Dose: 162 mg Documented By: MARLIN Vital Signs Vital signs: Vital Signs - 8 hr 08/16/23 08:49 08/16/23 08:55 08/16/23 09:21 Temperature 97.6 F Pulse Rate 91 H 88 Respiratory Rate 22 Blood Pressure 180/83 H Pulse Oximetry 97 96 96 Oxygen Delivery Method Room Air 08/16/23 09:26 08/16/23 09:26 08/16/23 09:30 Temperature Pulse Rate 89 86 Respiratory Rate 17 19 Blood Pressure 162/106 H Pulse Oximetry 96 96 Oxygen Delivery Method 08/16/23 09:45 08/16/23 09:57 08/16/23 09:57 Temperature Pulse Rate 83 87 Respiratory Rate 15 22 Blood Pressure 165/98 H Pulse Oximetry 96 96 Oxygen Delivery Method Room Air 08/16/23 10:00 08/16/23 10:00 08/16/23 10:15 Temperature Pulse Rate 80 81 Respiratory Rate 14 Blood Pressure 169/92 H Pulse Oximetry 96 96 Oxygen Delivery Method MDM - Neuro Symptoms/Deficit Differential Diagnosis Differential diagnosis: Likely subarachnoid hemorrhage, cerebrovascular accident and transient cerebral ischemia Lab Data 08/16/23 08:56 08/16/23 08:56 Labs: Lab Results 08/16/23 Range/Units 08:56 WBC 7.5 (4.5-11.0) X10^3/uL RBC 5.28 (4.5-5.9) X10^6/uL Hgb 16.3 (13.5-17.5) g/dL Hct 48.1 (41-53) % MCV 91.0 (80-100) fL MCH 30.9 (26-34) PG MCHC 34.0 (30-36) % RDW 13.7 (11.6-14.8) % Plt Count 211 (150-400) X10^3/uL Neut % (Auto) 62.0 (50-75) % Lymph % (Auto) 27.4 (25-40) % [place] % (Auto) 8.5 (3-14) % Eos % (Auto) 1.2 L (2-4) % Baso % (Auto) 0.9 (0-2) % Neut # (Auto) 4600 (5836-1307) /uL Lymph # (Auto) 2100 (7893-5964) /uL [place] # (Auto) 600 (0-900) /uL Eos # (Auto) 100 (0-450) /uL Baso # (Auto) 100 (0-100) /uL PT 12.6 H (9.4-12.5) SECONDS INR 1.1 (0.9-1.3) Sodium 142 (137-145) mmol/L Potassium 4.1 (3.4-5.1) mmol/L Chloride 102 (98-107) mmol/L Carbon Dioxide 28 (22-32) mmol/L BUN 14 (9-20) mg/dL Creatinine 0.88 (0.66-1.25) mg/dL Estimated GFR > 60 (>60) mL/min BUN/Creatinine Ratio 15.9 (6-22) Glucose 152 H (80-110) mg/dL Calcium 9.5 (8.4-10.2) mg/dL Total Bilirubin 0.8 (0.2-1.3) mg/dL AST 42 (17-59) IU/L ALT 42 (<50) IU/L Alkaline Phosphatase 109 (38-126) U/L Total Creatine Kinase 70 (55-170) U/L Troponin I < 0.012 (0.01-0.034) ng/mL Total Protein 7.9 (6.3-8.2) g/dL Albumin 4.5 (3.5-5.0) g/dL Globulin 3.4 (1.7-4.1) g/dL Albumin/Globulin Ratio 1.3 (1.0-2.8) TSH 5.10 H (0.47-4.68) uIU/mL Point of Care Testing Glucose POC 152 ECG Data Interpretation: Normal sinus rhythm, rate 88 beats per minute. Left anterior fascicular block, no ST T wave changes, no STEMI MDM Narrative Medical decision making narrative: Slurred speech for greater than 24 hours. Patient has primary care deficit, has not seen physician in at least 3-1/2 years. Since symptoms have been ongoing for at least 25 hours patient is outside of window for any tPA, TNK, other invasive treatments or therapies. Patient did take 2 baby aspirin prior to arrival, we will give 2 additional baby aspirin for total full-dose aspirin. We will order CT brain, CT angio of head and neck. Laboratory work reveals no acute abnormalities. CT of the brain noncontrast negative for acute findings. No significant stenosis on CT angio. Patient reassessed, he states that his speech seems to be improved. Presentation is still concerning for CVA versus TIA. Hi ABCD2 score, and patient has had no primary care in several years. We will admit patient for further evaluation and treatment of possible CVA. Stroke Core Measures Exclusion Criteria TPA in CVA: Symptom Onset >3 or 4.5 Hours Discharge Plan Departure Patient Disposition: Admitted as Observation Clinical Impression: Slurred speech Hypertension Qualifiers: Hypertension type: unspecified Qualified Code(s): I10 - Essential (primary) hypertension Admit Date/Time: 08/16/23 10:42 Admit Provider: Pavel Huertas
[2023-08-16 09:00] LABS: Add Manual Diff / Slide Review NO; Basophils Absolute Auto 100 /uL (0-100); Basophils Percent Auto 0.9 % (0-2); Eosinophils Absolute Auto 100 /uL (0-450); Eosinophils Percent Auto 1.2 % (2-4); Hematocrit 48.1 % (41-53); Hemoglobin 16.3 g/dL (13.5-17.5); Lymphocytes Absolute Auto 2100 /uL (1100-4500); Lymphocytes Percent Auto 27.4 % (25-40); Mean Corpuscular Hemoglobin 30.9 PG (26-34); Monocytes Absolute Auto 600 /uL (0-900); Monocytes Percent Auto 8.5 % (3-14); Neutrophils Absolute Auto 4600 /uL (1500-7000); Platelet Count 211 X10^3/uL (150-400); Red Blood Cell Count 5.28 X10^6/uL (4.5-5.9); Red Cell Distribution Width 13.7 % (11.6-14.8); White Blood Cell Count 7.5 X10^3/uL (4.5-11.0)
[2023-08-16 09:01] LABS: INR 1.1 (0.9-1.3); Prothrombin Time 12.6 SECONDS (9.4-12.5)
[2023-08-16 09:06] LABS: Alanine Aminotransferase 42 IU/L (<50); Albumin 4.5 g/dL (3.5-5.0); Albumin Globulin Ratio 1.3 (1.0-2.8); Alkaline Phosphatase 109 U/L (38-126); Aspartate Aminotransferase 42 IU/L (17-59); BUN Creatinine Ratio 15.9 (6-22); Bilirubin Total 0.8 mg/dL (0.2-1.3); Blood Urea Nitrogen 14 mg/dL (9-20); Calcium 9.5 mg/dL (8.4-10.2); Carbon Dioxide 28 mmol/L (22-32); Chloride 102 mmol/L (98-107); Creatine Kinase 70 U/L (55-170); Estimated Glomerular Filt Rate > 60 mL/min (>60); Globulin 3.4 g/dL (1.7-4.1); Glucose 152 mg/dL (80-110); HEMOLYSIS 44 (0-50); Potassium 4.1 mmol/L (3.4-5.1); Sodium 142 mmol/L (137-145); Total Protein 7.9 g/dL (6.3-8.2)
[2023-08-16 09:18] LABS: Troponin I < 0.012 ng/mL (0.01-0.034)
[2023-08-16] MEDS: ASPIRIN EC 81 MG TABLET 162 MG PO (09:40)
--- NOTE | 2023-08-16 11:06 | DI.MRI.S_ITS ---
PROCEDURE: MR HEAD/BRAIN WO CON INDICATIONS: slurred speech, please evaluate for stroke TECHNIQUE: Non-contrast axial T1 spin echo, axial T2 fast spin echo, sagittal and axial FLAIR, coronal T2 fast spin echo, axial gradient echo, axial diffusion and ADC through the brain. COMPARISON: [facility], CT, CT HEAD/BRAIN WO CON, 08/16/2023, 9:09. [facility], CT, CT ANGIO HEAD AND NECK, 08/16/2023, 9:09. FINDINGS: Image quality: Excellent. CSF spaces: Ventricles appear symmetric in size and shape. Basal cisterns are patent. No extra-axial fluid collections. Brain: A few foci of abnormal diffusion-weighted signal can be seen involving the deep white matter of the left frontal lobe, with minimal involvement the left basal ganglia. Associated dark signal can be seen on the ADC maps at these sites. There is developing T2 weighted signal within these regions. No intracranial bleeds or mass effects. There is cerebral volume loss for age. There are periventricular and deep white matter chronic small vessel ischemic changes. Brainstem appears normal. No chronic ischemic insults. Normal intravascular flow voids are present. Skull and face: Calvarial bone marrow is normal in signal. Orbits are normal. Sinuses: Sinuses and mastoids are clear. 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 Dictated by: Kingston Pinon M.D. on 08/16/2023 at 11:20 Approved by: Kingston Pinon M.D. on 08/16/2023 at 11:22
--- NOTE | 2023-08-16 11:06 | DI.ECHO.S_ITS ---
[facility]---------+ [facility] +---------+ : : [address] : : : : [id number] : : : : Phone: [phone]+ Echocardiogram Report + + :Name: CECY BECKFORD Study Date: 08/16/2023 Height: 71 in : :[facility] ReadingLocation: Weight: 350 lb : : Gender: Male BSA: 2.7 m2 : :: 1945 Age: 78 yrs BP: 187/91 mmHg: :Reason For Study: POSSIBLE STROKE : :Ordering Physician: PRAMOD, : :DEMOND Lindsay Performed By: Priyanka Conte : :Referring: DEMOND BENAVIDEZ : + + Interpretation Summary The left ventricle is normal in size and wall thickness. Left ventricular systolic function is borderline reduced. The ejection fraction is estimated to be 45-50%. Diastolic parameters suggest a relaxation abnormality of the left ventricle, consistent with probable normal filling pressures. The right ventricle is normal in size and function. The right ventricular systolic pressure is estimated to be at least 27 mmHg based on an estimated right atrial pressure of 3 mm Hg. The left atrial size is normal. Right atrial size is normal. There is no significant valvular heart disease. The aortic root is borderline dilated. The ascending aorta is mildly enlarged. Procedure: A two-dimensional transthoracic echocardiogram with color flow and Doppler was performed. The study quality was technically adequate. There is no prior echocardiogram noted for this patient. A contrast injection of Definity was performed to improve assessment of LV function. The patient was in sinus rhythm with heart rates between 72-96 bpm during the exam. Left Ventricle: The left ventricle is normal in size and wall thickness. Left ventricular systolic function is borderline reduced. The ejection fraction is estimated to be 45-50%. There is borderline global hypokinesis of the left ventricle. Diastolic parameters suggest a relaxation abnormality of the left ventricle, consistent with probable normal filling pressures. Right Ventricle: The right ventricle is normal in size and function. Atria: The left atrial size is normal. Right atrial size is normal. There is no Doppler evidence for an interatrial shunt. Mitral Valve: The mitral valve is normal in structure and function. There is trace mitral regurgitation. Aortic Valve: The aortic valve is not well visualized. There is no aortic valve stenosis. No aortic regurgitation is present. Tricuspid Valve: The tricuspid valve is normal in structure and function. There is mild tricuspid regurgitation. The right ventricular systolic pressure is estimated to be at least 27 mmHg based on an estimated right atrial pressure of 3 mm Hg. Pulmonic Valve: The pulmonic valve is not well seen, but is grossly normal. There is no pulmonic valvular regurgitation. There is no significant valvular heart disease. Great Vessels: The aortic root is borderline dilated. The ascending aorta is mildly enlarged. The IVC is of normal diameter and collapses greater than 50% with a sniff. This suggests a low right atrial pressure of 3 mm Hg. Pericardium/ Pleura There is no pericardial effusion. There is no pleural effusion. MMode/2D Measurements & Calculations LVIDd: 3.9 cm LVOT diam: 2.1 cm LVIDs: 3.3 cm Ao root diam: 4.0 cm FS: 14.6 % asc Aorta Diam: 3.7 cm IVSd: 1.0 cm Ao Arch Diam (Prox Trans): 2.2 cm LVPWd: 0.86 cm LV jacobsen. diameter/BSA (cm/m^2): 1.5 LV sys. diameter/BSA (cm/m^2): 1.2 LA A2 area: 19.6 cm2 RA long axis: 4.7 cm LA A4 area: 20.7 cm2 RA area: 15.1 cm2 LA length (vol): 5.5 cm RA vol: 41.4 ml LA vol: 62.5 ml RA : 15.5 ml/m2 LA vol index: 23.4 ml/m2 IVC diam: 1.4 cm RVD1 (basal): 3.8 cm RVD2 (mid): 3.7 cm TAPSE: 1.8 cm Doppler Measurements & Calculations Ao V2 max: 140.5 cm/sec LVOT Max Jono: 98.5 cm/sec Ao V2 mean: 109.3 cm/sec LV V1 max P.9 mmHg Ao max P.0 mmHg LV V1 VTI: 23.7 cm Ao mean P.1 mmHg STEFANI(I,D): 2.6 cm2 Ao V2 VTI: 31.1 cm STEFANI(V,D): 2.4 cm2 sev ratio: 0.76 STEFANI indexed to BSA (cm^2/m^2): 0.98 MV E max jono: 64.6 cm/sec TR max jono: 244.1 cm/sec MV A max jono: 100.5 cm/sec TR max P.8 mmHg MV E/A: 0.64 PA V2 max: 92.2 cm/sec Med Peak E' Jono: 4.8 cm/sec PA V2 mean: 68.8 cm/sec E/E' med: 13.4 PA mean P.0 mmHg Lat Peak E' Jono: 7.0 cm/sec PA pr(Accel): 29.3 mmHg E/E' lat: 9.2 E/e' average: 11.3 MV dec time: 0.29 sec SV(LVOT): 81.5 ml Reading Physician:05:20 PM
--- NOTE | 2023-08-16 11:13 | PM.HP.1 ---
History of Present Illness History of Present Illness Date Patient Seen: 08/16/23 Chief complaint: Stroke Narrative: Ramu Restrepo is a 78-year-old male with past medical history of HTN, HLD, and nephrolithiasis who presents with 24 hours of slurred speech. Patient was with friends yesterday around 8am who first noticed his speech was slurred. He thought it would improve but it didn't so waited 24 hours until he called EMS and was brought to the ED. NIH of 2. Patient also notes some slight weakness in his right hand and leg. He does not have a PCP but he would like one. He only takes 10mg lipitor daily. He denies visual changes, dysphagia, CP, SOB, NV, abd pain or diarrhea. [facility] Medical History (Updated 08/16/23 @ 10:47 by Tesha Richardson MD) Kidney stones Surgical History H/O lithotripsy Social History household members: spouse Smoking Status: Former smoker alcohol intake: current Meds Home Medications and Allergies Home Medications Medication Instructions Recorded Confirmed Type fexofenadine 180 mg tablet 180 mg PO DAILY 05/27/18 08/16/23 History atorvastatin 10 mg tablet 10 mg PO DAILY 04/22/19 08/16/23 History Allergies Allergy/AdvReac Type Severity Reaction Status Date / Time grass pollen [GRASS POLLEN] Allergy Mild RUNNY NOSE Verified 12/03/20 12:05 Xhmlupq-COU-WsU Reductase Allergy Verified 12/03/20 12:05 Inhibitor [Ijfptmv-Abl-Udi Reductase Inhibitor] Review of Systems Review of Systems Narrative: All other systems reviewed with the patient and are negative unless otherwise stated. Exam Vital Signs (past 8 hours): - 08/16/23 08:49 08/16/23 08:55 08/16/23 09:21 Temperature 97.6 F Pulse Rate 91 H 88 Respiratory Rate 22 Blood Pressure 180/83 H Pulse Oximetry 97 96 96 Oxygen Delivery Method Room Air 08/16/23 09:26 08/16/23 09:26 08/16/23 09:30 Temperature Pulse Rate 89 86 Respiratory Rate 17 19 Blood Pressure 162/106 H Pulse Oximetry 96 96 Oxygen Delivery Method 08/16/23 09:45 08/16/23 09:57 08/16/23 09:57 Temperature Pulse Rate 83 87 Respiratory Rate 15 22 Blood Pressure 165/98 H Pulse Oximetry 96 96 Oxygen Delivery Method Room Air 08/16/23 10:00 08/16/23 10:00 08/16/23 10:15 Temperature Pulse Rate 80 81 Respiratory Rate 14 Blood Pressure 169/92 H Pulse Oximetry 96 96 Oxygen Delivery Method Oxygen Delivery Method Room Air Narrative Exam Narrative: GEN: no acute distress, obese, slightly slurred speech HEENT: moist mucous membranes, PERRL NECK: trachea midline, no JVD CV: regular rate and rhythm, no murmurs PULM: clear bilaterally ABD: soft, nontender, nondistended, no organomegaly EXT: warm and well perfused with no edema NEURO: awake, alert, oriented, R arm and leg slightly weak Objective Labs 08/16/23 08:56 08/16/23 08:56 Labs: Laboratory Results - last 24 hr 08/16/23 08:56 WBC 7.5 RBC 5.28 Hgb 16.3 Hct 48.1 MCV 91.0 MCH 30.9 MCHC 34.0 RDW 13.7 Plt Count 211 Neut % (Auto) 62.0 Lymph % (Auto) 27.4 [place] % (Auto) 8.5 Eos % (Auto) 1.2 L Baso % (Auto) 0.9 Neut # (Auto) 4600 Lymph # (Auto) 2100 [place] # (Auto) 600 Eos # (Auto) 100 Baso # (Auto) 100 PT 12.6 H INR 1.1 Sodium 142 Potassium 4.1 Chloride 102 Carbon Dioxide 28 BUN 14 Creatinine 0.88 Estimated GFR > 60 BUN/Creatinine Ratio 15.9 Glucose 152 H Calcium 9.5 Total Bilirubin 0.8 AST 42 ALT 42 Alkaline Phosphatase 109 Total Creatine Kinase 70 Troponin I < 0.012 Total Protein 7.9 Albumin 4.5 Globulin 3.4 Albumin/Globulin Ratio 1.3 TSH 5.10 H Assessment & Plan Assessment & Plan narrative: # subacute strokes -patient presented with slurred speech -MRI brain shows several subacute infarcts of left frontal lobe and basal ganglia -speech, OT, PT cleared patient for home -start aspirin plus plavix x21 days -increase lipitor 80mg -tele # new-onset mild CHF -echo shows EF 45-50%, patient has no history of heart failure -euvolemic on exam -start coreg 3.125mg BID -will need outpatient cardiology referral once he gets new PCP # hypertension -BP 160-170's sytolic -start losartan 25mg daily #hyperlipidemia -continue high intensity statin # h/o kidney stones Code status is full code. DVT prophylaxis with Lovenox. Proxy is spouse Sabi. I have reviewed home meds and used all available resources to reconcile the home meds. Case discussed with ED physician/APC and patient will be admitted to the hospitalist service for further workup and management. This patient will be admitted as observation and will require less than 2 midnights of hospital time to treat stroke rule out.
[2023-08-16 11:31] LABS: Magnesium 2.1 mg/dL (1.6-2.3)
[2023-08-16 11:32] LABS: Cholesterol 141 mg/dL (140-199); HDL Cholesterol 29 mg/dL (40-60); LDL Cholesterol Calculated 70 mg/dL (<100); Triglycerides 209 mg/dL (35-150)
[2023-08-16 12:04] LABS: TSH w/ Reflex to FT4 5.26 uIU/mL (0.47-4.68)
[2023-08-16 12:28] LABS: Free T4, Direct Thyroxine 1.26 ng/dL (0.78-2.19)
[2023-08-16] MEDS: ENOXAPARIN 40 MG/0.4 ML SYRINGE SUBCUT ×2 (12:51→20:05)
[2023-08-16] MEDS: CLOPIDOGREL 75 MG TABLET 300 MG PO (12:52)
--- NOTE | 2023-08-16 14:32 | SLP.IPNOTE ---
Order received. Spoke with nursing who reported pt has had no difficulty eating a regular diet with thin liquids. Pt indicated same. Pt was in bed watching TV. He described significantly improved speech and language from this morning. He reported that his speech and language appear to have resolved. Observation during conversation indicted same. Pt declined formal assessment. Will d/c order. notified.
--- NOTE | 2023-08-16 14:45 | OT.IP.EVAL ---
Past Medical History (Last Reviewed 08/16/23 @ 08:55 by Tesha Richardson MD) Kidney stones Surgical History (Last Reviewed 08/16/23 @ 08:55 by Tesha Richardson MD) H/O lithotripsy Occupational Therapy Inpatient Evaluation/Re-Eval M1 PT/OT-IP Prior Functional Status Start: 08/16/23 17:11 Freq: NEEDED Status: Active Protocol: Document 08/16/23 14:15 [facility] (Rec: 08/16/23 17:41 [facility] [id number]) Medical Review Prior Functional Status Medical History Reviewed Yes Communication able to make needs known Mobility and Gait pt stated that he was independent with all mobilities and ambulation without AD Activities of Daily Living and IADL's Pt states has difficulty to put socks on and just uses velcro shoes. Social History Household Members spouse Living Arrangements House Number of Floors (Floors) One Floor Number of Stairs To Enter/Railing? pt has a ramp to enter Home Environment Standard Height Toilet,Walk in Shower,Ramp Home Equipment Straight Cane,Shower Seat with Backrest,Hand Held Shower, Grab Bars Near Toilet,Grab Bars In Shower Additional Social History Comment Pt stated that spouse will not be able to assist him, spouse uses a FWW for mobility. M2 OT-IP Current Condition Start: 08/16/23 17:11 Freq: Status: Active Protocol: Document 08/16/23 14:15 [facility] (Rec: 08/16/23 17:41 [facility] [id number]) Occupational Therapy Current Condition Current Condition Evaluation Date 08/16/23 Treatment Diagnosis CVA left basal ganglia Diagnosis Onset Date 08/16/23 M3 OT- IP Subjective and Pain Start: 08/16/23 17:11 Freq: Status: Active Protocol: Document 08/16/23 14:15 [facility] (Rec: 08/16/23 17:41 [facility] [id number]) OT- Subjective Occupational Therapy Visit Type Type Initial Evaluation Visit Start Time 14:15 Visit Stop Time 14:45 Occupational Therapy Visit Comments Patient Comments Pt initially not wanting to participate in OT and then agreed to do a cognitive assessment. Patient/Caregiver Goals To go home. M4 OT- IP ADL's Start: 08/16/23 17:11 Freq: Status: Active Protocol: Document 08/16/23 14:15 [facility] (Rec: 08/16/23 17:41 [facility] [id number]) OT MIN-Fsee-Wihmwsh General Evaluation Self-Feeding Ability Independent OT ADL-Grooming General Evaluation Grooming Ability Independent OT ADL-Oral Care General Eval Oral Care Ability Independent OT ADL-Dressing General Eval Lower Body Dressing Ability Minimal Assistance Comments OT Dressing Comments Assist for the his right heel into the shoe. OT ADL-Toileting Comments OT Toileting Comments Pt states has been going in and out of the bathroom on his own. OT ADL-Bathing Comments OT Bathing Comments Pt states has a shower chair with back at home to use. M5 OT- IP IADL's Start: 08/16/23 17:11 Freq: Status: Active Protocol: Document 08/16/23 14:15 [facility] (Rec: 08/16/23 17:41 [facility] [id number]) OT-Instrumental Activities of Daily Living Deficits IADL Deficits Identified Deficits Home Safety Awareness Awareness of Need for Assistance at Home Good Awareness Ability to Problem Solve Emergency Able to Problem Solve Situations Medication Management Medication Management Comments Pt would benefit from supervision. Money Management Money Management Comments Pt would benefit from supervision. Meal Preparation Meal Preparation Caregiver Provides Assist Director Writing Director Writing Caregiver Provides Assist Driving Driving Concerns Identified Regarding Safety M6 OT- IP Functional Cognition Start: 08/16/23 17:11 Freq: Status: Active Protocol: Document 08/16/23 14:15 [facility] (Rec: 08/16/23 17:41 [facility] [id number]) Cognitive Factors Limiting Selfcare Function Cognitive Ability Level of Alertness Alert Patient Orientation Name,Age,Birthday,Month,Date, Year,Day of Week,Place, Situation Attention Span Ability Capable of Focused Attention, Capable of Sustained Attention Ability to Follow Commands Able to Follow Multi-Step Commands Memory Description Short Term Impaired,Working Impaired Safety Awareness Underestimates Need for Assistance Cognitive Tests SLUMS Pt scored 20/30 which implies borderline dementia for his education, however score may be affected from his L basal ganglia CVA. Pt able to name 13 animals in one minute, able to recall 2/5 objects after time passed, unable to write the number of the clock correctly and number all skewed to the right side, and able to answer 3/4 questions right after a paragraph read. Cognitive Comments Cognitive Assessment Comments Pt scored 180 seconds on [place] Making Part B which per [employer] a score of greater than 180 seconds someone is more apt to get into a car accident. Pt not able to recall the letters of the alphabet at times when switching from numbers to letters and having to say the number /alphabet out loud to figur it out. Pt's score indicates severe deficits for visual attention, speed of processing , mental flexibility, executive functioning, and task switching. Pt was a bit surprised that he did do better on the cognitive assessment. Strongly suggested pt not drive at this time. OT- Vision and Hearing OT- Vision Assessment Visual Acuity Glasses For Reading Visual Attentiveness WFL Occular Pursuits WFL Visual Convergence WFL Vision Assessment Comments At time difficulty with peripheral vision. M7 OT- IP Mobility and Balance Start: 08/16/23 17:11 Freq: Status: Active Protocol: Document 08/16/23 14:15 [facility] (Rec: 08/16/23 17:41 [facility] [id number]) OT- Bed Mobility Assessment Supine to Sit Supine to Sit Assist Standby Assistance,Bedrails OT-Transfer Assessment Sit to and From Stand Sit to and from Stand Standby Assistance Technique Transfer Destination Bed,Chair Transfer Technique Stand Step Pivot Devices Transfer Assistive Devices None,Gait Belt Comments Mobility Comments Use of momentum to get to the edge of the bed and bed rail. SBA to stand and pt tends to waddle and occasional furniture cruising but no loss of balance noted. OT- Balance Assessment Sitting Balance and Reactions Static Sitting Balance Ability Normal Dynamic Sitting Balance Ability Good Standing Balance and Reactions Static Standing Balance Ability Good Dynamic Standing Balance Ability Fair M8 OT- IP Objective Assessments Start: 08/16/23 17:11 Freq: Status: Active Protocol: Document 08/16/23 14:15 [facility] (Rec: 08/16/23 17:41 [facility] [id number]) OT Gross Range of Motion Upper Extremity Range of Motion Assessment Bilaterally Impaired ROM Impairments Decreased for end ROM, left shoulder greater than right. OT Strength Comments Strength Comments For range available 4/5 OT- Coordination Assessment Upper Extremity Finger to Nose Test Right UE Impaired Finger Tapping Test Right UE Impaired Comments Coordination Comments Slightly off for accuracy for right hand. OT-Muscle Tone Assessment Muscle Tone WNL Yes OT Sensation Assessment Comments Summary Comments Intact for touch, decreased for kinesthesia for left hand. M9 OT- IP Assessment and Plan Start: 08/16/23 17:11 Freq: Status: Active Protocol: Document 08/16/23 14:15 [facility] (Rec: 08/16/23 17:41 [facility] [id number]) OT Summary Assessment and Plan Potential Rehabilitation Potential Good Analytic Complexity at Evaluation Moderate Summary OT Impairments Range of Motion,Strength, Balance,Coordination, Functional Cognition, Functional Mobility,Bathing Progress Towards Goals Progressing Toward Goals Assessment Summary Pt MOD complexity and main barriers are decreased short term memory and executive function for cognition and unable to draw numbers on a clock and numbers from 12-11 all on the right side and then writing in 15,30,45. Pt scored poorly on [place] making Part B and and unable to keep track on the alphabet at time. Pt scored 20/30 on the SLUMS which implies borderline dementia, but also can be affected from his CVA. Pt will benefit from assist at home and outpt OT or SPIKE MACHINE HEATER for cognitive needs. Pt aware of suggestion not to drive at this time. Goals Dressing Goal Independent Bathing Goal Independent Shower Transfer Goal Independent Days to Meet Goals 5 Frequency of Treatment Frequency Of Treatment Once a Day Treatment Plan OT Treatment Plan ADL Training,Functional Cognition Training,Functional Mobility,Patient/Family Education,Discharge Planning Discharge Recommendations OT Discharge Recommendations Home with Assistance Other Discharge Recommendations Outpt OT or SPIKE MACHINE HEATER for executive functioning and memory needs. Transportation Needs at Discharge Private Vehicle
--- NOTE | 2023-08-16 14:50 | PT.IIE ---
Surgical History (Last Reviewed 08/16/23 @ 08:55 by Tesha Richardson MD) H/O lithotripsy Medical History (Last Reviewed 08/16/23 @ 08:55 by Tesha Richardson MD) Kidney stones Physical Therapy Inpatient Evaluation/Re-Eval M1 PT/OT-IP Prior Functional Status Start: 08/16/23 16:55 Freq: NEEDED Status: Active Protocol: Document 08/16/23 14:50 [facility] (Rec: 08/16/23 17:04 [facility] [id number]) Medical Review Prior Functional Status Medical History Reviewed Yes Communication able to make needs known Mobility and Gait pt stated that he was independent with all mobilities and ambulation without AD Social History Household Members spouse Living Arrangements House Number of Floors (Floors) One Floor Number of Stairs To Enter/Railing? pt has a ramp to enter Home Environment Standard Height Toilet,Walk in Shower,Ramp Home Equipment Straight Cane,Shower Seat with Backrest,Hand Held Shower, Grab Bars Near Toilet,Grab Bars In Shower Additional Social History Comment pt stated that spouse will not be able to assist him; spouse uses a FWW for mobility M2 PT-IP Current Condition Start: 08/16/23 16:55 Freq: NEEDED Status: Active Protocol: Document 08/16/23 14:50 [facility] (Rec: 08/16/23 17:04 [facility] [id number]) Physical Therapy Current Condition Current Condition Evaluation Date 08/16/23 Treatment Diagnosis CVA; difficulty in walking Onset Date 08/16/23 M3 PT-IP Subjective Start: 08/16/23 16:55 Freq: NEEDED Status: Active Protocol: Document 08/16/23 14:50 [facility] (Rec: 08/16/23 17:04 [facility] [id number]) Subjective Physical Therapy Visit Type Type Initial Evaluation Visit Start Time 14:50 Visit Stop Time 15:00 Number of PACKAGE WINDER Visits 10 Physical Therapy Visit Comments Patient Comments agreeable to do PT Therapy Pain Assessment Pain Present Pain Present Denied Pain M4 PT-IP Mobility and Gait Start: 08/16/23 16:55 Freq: NEEDED Status: Active Protocol: Document 08/16/23 14:50 [facility] (Rec: 08/16/23 17:04 [facility] [id number]) PT-Bed Mobility Assessment Supine to Sit Supine to Sit Independent Sit to Supine Sit to Supine Independent PT-Transfer Assessment Sit to and From Stand Sit to and from Stand Standby Assistance Equipment Transfer Assistive Device Gait Belt Orthotic/Prosthetic Devices or Brace: No Comments Mobility Comments pt is supine in bed and agreeable to do PT. obtained PLOF and home set up from pt. pt completed supine to sit mod I. able to sit on EOB SBA . pt with no c/o dizziness/ lightheadedness. completed sit to stand SBA and ambulated in room without AD SBA ~ 60 ft. pt presents with waddling gait but without LOB. pt went back to bed. sit to supine mod I. positioned pt in bed. call light and table placed within reach. Gait Assessment Gait Gait Assistance Required: Standby Assistance Distance (Feet) 60 Able to Maintain Weight Bearing Status Yes During Gait Assistive Devices Assistive Device None,Gait Belt Orthotic/Prosthetic Devices or Brace: No Gait Deviations General Gait Pattern Decreased Stride Length, Decreased Feet Clearance Factors Limiting Gait Function Factors Limiting Gait Function Decreased Activity Tolerance, Decreased Strength,Poor Balance,Poor Safety Awareness PT-Balance Assessment Sitting Balance and Reactions Static Sitting Balance Ability Normal Dynamic Sitting Balance Ability Normal Standing Balance and Reactions Static Standing Balance Ability Good Dynamic Standing Balance Ability Fair Device Used without AD M5 PT-IP Objective Assessments Start: 08/16/23 16:55 Freq: NEEDED Status: Active Protocol: Document 08/16/23 14:50 [facility] (Rec: 08/16/23 17:04 [facility] [id number]) Orientation Orientation/Cognition Level of Alertness Alert Orientation Name Language Function Ability No Deficits Noted Safety Awareness Understands Safety Issues Memory Description No Deficits Noted Gross Range of Motion Lower Extremity ROM Assessment Within Functional Limits Strength Lower Extremity Strength Assessment Within Functional Limits Muscle Tone Muscle Tone WNL Yes M6 PT-IP Treatment Start: 08/16/23 16:55 Freq: NEEDED Status: Active Protocol: Document 08/16/23 14:50 [facility] (Rec: 08/16/23 17:04 AB [id number]) Physical Therapy Treatment Education Education Provided Safety M7 PT-IP Assessment and Plan Start: 08/16/23 16:55 Freq: NEEDED Status: Active Protocol: Document 08/16/23 14:50 [facility] (Rec: 08/16/23 17:04 [facility] [id number]) PT Summary Assessment and Plan Potential Rehabilitation Potential Good Status of Condition at Evaluation Stable Summary Impairments ROM,Strength,Balance, Coordination,Sensation,Tone, Cognition,Bed Mobility, Transfers,Gait,Activity Tolerance Assessment Summary pt is a 78 y/o M who presented to the ED due to slurred speech. pt admitted for CVA. pt is mod I with bed mobility and is SBA for ambulation without AD. pt presents with a waddling gait but without LOB. No further PT intervention indicated at this time. informed pt regarding d/c PT and pt agreed. Frequency of Treatment Frequency Of Treatment Discharge Recommendations To Nursing Amount of Assist Needed Standby Assistance Discharge Recommendations PT Discharge Recommendations Home Transportation Needs at Discharge Private Vehicle
[2023-08-16] MEDS: carvediloL 3.125 MG TABLET PO (20:03)
[2023-08-16] MEDS: LOSARTAN 25 MG TABLET PO (20:04)
[2023-08-16] MEDS: ATORVASTATIN 20 MG TABLET 80 MG PO (20:04)
[2023-08-17 00:21] VITALS: BP 125/79; PULSE 94; RESP 16; TEMP 35.8; O2SAT 97
[2023-08-17] MEDS: MELATONIN 3 MG TABLET 6 MG PO (02:14)
[2023-08-17 04:31] VITALS: BP 121/75; PULSE 89; RESP 18; TEMP 35.6; O2SAT 95
[2023-08-17 05:44] LABS: Add Manual Diff / Slide Review NO; Basophils Absolute Auto 100 /uL (0-100); Basophils Percent Auto 0.9 % (0-2); Eosinophils Absolute Auto 100 /uL (0-450); Hemoglobin 14.9 g/dL (13.5-17.5); Lymphocytes Absolute Auto 1100 /uL (1100-4500); Lymphocytes Percent Auto 14.9 % (25-40); Mean Corpuscular HGB Conc 34.5 % (30-36); Mean Corpuscular Hemoglobin 31.3 PG (26-34); Mean Corpuscular Volume 90.5 fL (80-100); Monocytes Absolute Auto 700 /uL (0-900); Monocytes Percent Auto 9.1 % (3-14); Neutrophils Absolute Auto 5700 /uL (1500-7000); Neutrophils Percent Auto 74.1 % (50-75); Platelet Count 197 X10^3/uL (150-400); Red Blood Cell Count 4.75 X10^6/uL (4.5-5.9); Red Cell Distribution Width 13.8 % (11.6-14.8); White Blood Cell Count 7.6 X10^3/uL (4.5-11.0)
[2023-08-17 05:59] LABS: BUN Creatinine Ratio 18.7 (6-22); Blood Urea Nitrogen 14 mg/dL (9-20); Calcium 9.4 mg/dL (8.4-10.2); Carbon Dioxide 23 mmol/L (22-32); Chloride 103 mmol/L (98-107); Estimated Glomerular Filt Rate > 60 mL/min (>60); Glucose 135 mg/dL (80-110); HEMOLYSIS < 15 (0-50); Potassium 4.4 mmol/L (3.4-5.1); Sodium 137 mmol/L (137-145)
--- NOTE | 2023-08-17 07:31 | PM.DS.1 ---
History of Present Illness History of Present Illness Chief complaint: Stroke Narrative: Ramu Restrepo is a 78-year-old male with past medical history of HTN, HLD, and nephrolithiasis who presents with 24 hours of slurred speech. Patient was with friends yesterday around 8am who first noticed his speech was slurred. He thought it would improve but it didn't so waited 24 hours until he called EMS and was brought to the ED. NIH of 2. Patient also notes some slight weakness in his right hand and leg. He does not have a PCP but he would like one. He only takes 10mg lipitor daily. He denies visual changes, dysphagia, CP, SOB, NV, abd pain or diarrhea. Discharge Providers Provider Date of admission: 08/16/23 10:42 Discharge Date: 08/17/23 Primary care physician: Judi Aaron MD Consults: 08/16/23 11:07 Consult to Speech Therapy Evaluate & Treat Comment: slurred speech, stroke? Physician Instructions: Evaluate and treat 08/16/23 12:44 Consult to Home Health Routine Comment: Reason For Exam: PT/OT post-stroke Consult to Occupational Therapy Evaluate & Treat Comment: Physician Instructions: Evaluate and treat Consult to Physical Therapy Evaluate & Treat Comment: Physician Instructions: Evaluate and Treat Discharge provider: Pavel Huertas DO Summary Hospital Course Discharge Diagnosis: # subacute strokes -patient presented with slurred speech, has very mild dysarthria on exam -scored 20/30 on SLUMS -MRI brain shows several subacute infarcts of left frontal lobe and basal ganglia -speech, OT, PT cleared patient for home -started aspirin plus plavix x21 days -increased lipitor 80mg -tele # new-onset mild CHF -echo shows EF 45-50%, patient has no history of heart failure -euvolemic on exam -started coreg 3.125mg BID -will need outpatient cardiology referral once he gets new PCP # hypertension -BP 160-170's sytolic -started losartan 25mg daily -BP now improved to 120's sytolic #hyperlipidemia -continue high intensity statin # h/o kidney stones Hospital Course: Admitted for slurred speech and found to have subacute CVA. Put on DAPT and home atorvastatin increased. Echo returned with mildly decreased EF of 45% so put on coreg and losartan. BP improved from 160's to 120's systolic. Patient given resources to get a new PCP and then cardiology referral after that. Exam Vital Signs (past 8 hours): - 08/17/23 00:21 08/17/23 04:31 Temperature 96.5 F L 96.0 F L Pulse Rate 94 H 89 Respiratory Rate 16 18 Blood Pressure 125/79 121/75 Pulse Oximetry 97 95 Oxygen Flow Rate 0 0 Oxygen Delivery Method Room Air Oxygen Flow Rate 0 Narrative Exam Narrative: GEN: no acute distress, obese, slightly slurred speech HEENT: moist mucous membranes, PERRL NECK: trachea midline, no JVD CV: regular rate and rhythm, no murmurs PULM: clear bilaterally ABD: soft, nontender, nondistended, no organomegaly EXT: warm and well perfused with no edema NEURO: awake, alert, oriented, R arm and leg slightly weak Objective Labs 08/17/23 05:27 08/17/23 05:27 Labs: Laboratory Results - last 24 hr 08/16/23 08/16/23 08/17/23 08:56 08:56 05:27 WBC 7.5 7.6 RBC 5.28 4.75 Hgb 16.3 14.9 Hct 48.1 43.0 MCV 91.0 90.5 MCH 30.9 31.3 MCHC 34.0 34.5 RDW 13.7 13.8 Plt Count 211 197 Neut % (Auto) 62.0 74.1 Lymph % (Auto) 27.4 14.9 L [place] % (Auto) 8.5 9.1 Eos % (Auto) 1.2 L 1.0 L Baso % (Auto) 0.9 0.9 Neut # (Auto) 4600 5700 Lymph # (Auto) 2100 1100 [place] # (Auto) 600 700 Eos # (Auto) 100 100 Baso # (Auto) 100 100 PT 12.6 H INR 1.1 Sodium 142 137 Potassium 4.1 4.4 Chloride 102 103 Carbon Dioxide 28 23 BUN 14 14 Creatinine 0.88 0.75 Estimated GFR > 60 > 60 BUN/Creatinine Ratio 15.9 18.7 Glucose 152 H 135 H Hemoglobin A1c Cancelled Calcium 9.5 9.4 Magnesium 2.1 Total Bilirubin 0.8 AST 42 ALT 42 Alkaline Phosphatase 109 Total Creatine Kinase 70 Troponin I < 0.012 Total Protein 7.9 Albumin 4.5 Globulin 3.4 Albumin/Globulin Ratio 1.3 Triglycerides 209 H Cholesterol 141 LDL Cholesterol, Calc 70 HDL Cholesterol 29 L TSH 5.10 H 5.26 H Free T4 1.26 PFSH Medical History (Updated 08/16/23 @ 10:47 by Tesha Richardson MD) Kidney stones Surgical History H/O lithotripsy Social History household members: spouse Smoking Status: Former smoker alcohol intake: current Discharge Plan Discharge Plan Patient Disposition: Home Provider Discharge Comment: You were found to have a stroke. You will now be on aspirin indefinitely plus plavix for 3 weeks. I've increased your lipitor to max dosage. We also found you have mild CHF, so I have started some heart medications. Please get a PCP and then a referral to cardiology to keep and eye on your heart. Discharge orders & Medications Prescriptions: New clopidogrel 75 mg Tablet 75 mg PO DAILY 18 Days Qty: 18 0RF Rx Instructions: start on 08/18 aspirin 81 mg Tablet,Delayed Release (Dr/Ec) 81 mg PO DAILY Qty: 90 0RF carvedilol 3.125 mg Tablet 3.125 mg PO BID Qty: 180 0RF losartan 25 mg Tablet 25 mg PO BEDTIME Qty: 90 0RF atorvastatin [Lipitor] 80 mg tablet 80 mg PO BEDTIME Qty: 90 0RF Continued fexofenadine 180 mg tablet 180 mg PO DAILY Discontinued atorvastatin 10 mg tablet 10 mg PO DAILY Follow up/Referrals: Judi Aaron MD [Primary Care Provider] - 2 Weeks Visit Report/Discharge Packet Stand Alone Forms: Patient Portal/API, Stroke Signs & Symptoms Discharge Data Primary Care Provider: Judi Aaron Attending Provider: Pavel Huertas Admit Date/Time: 08/16/23 10:42 Quality VTE Deep Vein Thrombosis/Pulmonary Embolism Present on Admission: No
[2023-08-17 08:00] VITALS: BP 149/100; PULSE 97; RESP 16; O2SAT 98
[2023-08-17 09:15] VITALS: BP 149/100; PULSE 98
[2023-08-17] MEDS: CLOPIDOGREL 75 MG TABLET PO (09:15)
[2023-08-17] MEDS: ENOXAPARIN 40 MG/0.4 ML SYRINGE SUBCUT (09:15)
[2023-08-17] MEDS: carvediloL 3.125 MG TABLET PO (09:15)
[2023-08-17] MEDS: ASPIRIN EC 81 MG TABLET PO (09:15)
[2023-08-17 11:40] VITALS: BP 132/61; PULSE 85; RESP 17; TEMP 36.4; O2SAT 96
--- NOTE | 2023-08-17 11:46 | CM.DANOTE ---
Initial DCP Assessment Note Reviewed EMR and team rounds for status updates. Met with pt at bedside to introduce self and role. Pt found to be dressed, sitting in the recliner, preparing for d/c home. He presents as alert/oriented/back to baseline in mentation, although mobility is slowed. This WHEEL MILL OPERATOR provided pt a taxi voucher in order to return home. No further needs for DCP identified at this time. Payor: Medicare No PCP Pt is a 78 year-old M who presented to the ED last evening w/slurred speech lasting over the last 24-hours. He had begun to experience slurred speech the day before, however waited 24-hours when it didn't resolve before he called EMS. 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 Pt resides independently at baseline in his own home with his . Plan is for pt to d/c home today, no additional needs are identified for DCP at this time. Discharge Planning/Care Management CM Discharge Assessment Start: 08/17/23 11:44 Freq: Status: Active Protocol: Document 08/17/23 11:44 [facility] (Rec: 08/17/23 11:45 [facility] [id number]) Discharge Planning Assessment Assigned Pharmacist In Charge ADRIANA Valdez Advance Directives? Yes Advance Directives on File No History Provided By Patient,Medical Record Prior Living Arrangements House Household Members spouse Independent with ADL's Yes Is patient alert and oriented? Yes Comment N/A Caregiver for Another Yes: ambulates w/walker DME Already Rented / Owned Elevated Toilet Seat,FWW / Walker,Cane Comment No anticipated home d/c needs identified at this time. Barriers to Discharge No Discharge Plan Home Transportation Arrangement Taxi Voucher Referrals Initiated None needed Whiteboard Updated in Patient Room with Yes name and ext. # of Pharmacist In Charge Review Status In Process Please Provide Date Initial DC 08/17/23 Assessment Was Performed
[2023-08-18 06:08] LABS: x Labcorp Estim. Avg Glu (eAG) 143 mg/dL (.); x Labcorp Hemoglobin A1c 6.6 % (4.8-5.6)
== END 2023-08-17 11:57 | disposition home or self-care (01) | DRG 66 ==
LOC: ED 10:30 → AC 10:47
PROVIDERS: Admitting Provider Student in an Organized Health Care Education/Training Program; Emergency Provider Emergency Medicine; PCP Student in an Organized Health Care Education/Training Program; Referring Provider Emergency Medicine; Visit Provider Student in an Organized Health Care Education/Training Program
DX: I63.9 Cerebral infarction, unspecified (principal); R47.81 Slurred speech; R29.702 NIHSS score 2; I50.9 Heart failure, unspecified; I11.0 Hypertensive heart disease with heart failure; E78.5 Hyperlipidemia, unspecified; R47.1 Dysarthria and anarthria
CPT/HCPCS: 36415; 70450; 70496; 70498; 70551; 71045; 80048; 80053; 80061; 82550; 82962; 83036; 83735; 84439; 84443; 84484; 85025; 85610; 93005; 93010; 97129; 97161; 97166; 99284; 99285; G0378; C8929; J1650; Q9957

== ENCOUNTER → 2023-11-26 12:54 | Outpatient (CLI) | payer MEDICARE, OTHER, SELFPAY ==
[2023-08-16 12:22] VITALS: BMI 48.8
--- NOTE | 2023-11-27 19:45 | DI.NM.S_ITS ---
DATE OF SERVICE: 11/26/2023 PROCEDURE: Pharmacological perfusion study. INDICATIONS: LV dysfunction with LV EF 45% to 50% on echocardiogram, hypertension, hyperlipidemia. RADIOPHARMACEUTICAL: 26.3 mCi technetium-99m Myoview IV was injected at stress and 25.8 mCi technetium-99m Myoview IV was injected at stress. It was 2 days' protocol. CARDIAC STRESS: The patient underwent IV Lexiscan study under the supervision of an attending staff using standard protocol. The patient tolerated the procedure. Baseline rhythm was sinus with frequent monomorphic PVCs including trigeminy and quadrigeminy pattern. Sinus rate was in 80s. During Lexiscan, PVCs got suppressed. At that time, heart rate was about 98. In recovery, PVCs got reappeared. No ventricular tachycardia. No chest pain. The patient had minimal dyspnea. Resting blood pressure of 138/80. RAW DATA: There is increased subdiaphragmatic activity. Hot spot near the inferior border of the heart. Gut is involving the inferior border of the heart as well. The patient's weight is 310 pounds. GATED STUDY: Resting LV ejection fraction 51% and stress LV ejection fraction 61% without any significant wall motion abnormalities. Resting end-diastolic volume 121 mL. TID ratio 1.20. This is a pharmacological perfusion study, hence it is not abnormal. Lung/heart ratio 0.48, which is abnormal. MYOCARDIAL PERFUSION SCAN: Please note, this patient does not have any stress prone images. Resting supine and stress supine images were compared to each other. There appears to be predominantly fixed moderate size, moderate to severely decreased perfusion of base-to-mid inferior wall extending into the basal inferolateral wall. No significant reversibility. CONCLUSION: There is a predominantly fixed moderate size, moderate to severely decreased perfusion of base-to-mid inferior wall extending into the basal inferolateral wall. There are no prone images to distinguish tissue attenuation artifact versus true myocardial infarction; however, the patient's weight is 310 pounds. On raw images, patient has hot spot as well as gut shadow and diaphragmatic shadow encroaching the inferior border of the heart. On gated study, no obvious hypokinesis of inferior wall or inferolateral wall. Hence, most likely, we are dealing with tissue attenuation artifact. However, one cannot rule out possibility of nontransmural myocardial infarction in those segments for sure. Lung/heart ratio 0.48, suggestive of elevated LV filling pressure. In the absence of ischemia, overall LV EF at rest 51% and stress 61%, not a high-risk perfusion study. Correlate clinically. Lauro Guallpa - MONICA/fabienne/KIERSTEN doc#: [id number]/job#: [id number] dd: 11/27/2023 16:32:00 dt: 11/27/2023 19:16:00 DICTATING MD/COPIES TO: Sol Canales MD COPIES MNE: CALLIE;
== END ==
PROVIDERS: PCP Family Medicine; Referring Provider Internal Medicine; Visit Provider Internal Medicine
DX: I11.0 Hypertensive heart disease with heart failure (principal); I50.22 Chronic systolic (congestive) heart failure; E78.5 Hyperlipidemia, unspecified; Z86.73 Personal history of transient ischemic attack (TIA), and cerebral infarction without residual deficits
CPT/HCPCS: 78452; 93017; A9502; J2785

== ENCOUNTER → 2024-04-24 06:39 | Outpatient (CLI) | payer MEDICARE, OTHER, SELFPAY ==
[2023-08-16 12:22] VITALS: BMI 48.8
[2024-04-24 09:01] LABS: BUN Creatinine Ratio 12.8 (6-22); Blood Urea Nitrogen 11 mg/dL (9-20); Calcium 9.1 mg/dL (8.4-10.2); Carbon Dioxide 27 mmol/L (22-32); Chloride 103 mmol/L (98-107); Estimated Glomerular Filt Rate > 60 mL/min (>60); Glucose 127 mg/dL (80-110); HEMOLYSIS < 15 (0-50); Potassium 4.9 mmol/L (3.4-5.1); Sodium 138 mmol/L (137-145)
== END ==
LOC: LAB 06:41
PROVIDERS: PCP Family Medicine; Referring Provider Internal Medicine; Visit Provider Internal Medicine
DX: I50.22 Chronic systolic (congestive) heart failure (principal)
CPT/HCPCS: 36415; 80048

== ENCOUNTER → 2024-06-12 06:53 | Outpatient (CLI) | payer MEDICARE, OTHER, SELFPAY ==
[2023-08-16 12:22] VITALS: BMI 48.8
[2024-06-12 08:13] LABS: BUN Creatinine Ratio 17.6 (6-22); Blood Urea Nitrogen 15 mg/dL (9-20); Calcium 9.3 mg/dL (8.4-10.2); Carbon Dioxide 27 mmol/L (22-32); Chloride 104 mmol/L (98-107); Estimated Glomerular Filt Rate > 60 mL/min (>60); Glucose 100 mg/dL (80-110); HEMOLYSIS < 15 (0-50); Potassium 4.6 mmol/L (3.4-5.1); Sodium 138 mmol/L (137-145)
== END ==
PROVIDERS: PCP Family Medicine; Referring Provider Internal Medicine; Visit Provider Internal Medicine
DX: I50.22 Chronic systolic (congestive) heart failure (principal)
CPT/HCPCS: 36415; 80048

== ENCOUNTER → 2024-08-06 06:16 | Outpatient (CLI) | payer MEDICARE, OTHER, SELFPAY ==
[2023-08-16 12:22] VITALS: BMI 48.8
--- NOTE | 2024-08-06 06:18 | DI.ECHO.S_ITS ---
[place] [facility]---------+ [facility] : : [address] : : [place] : : [id number] : : Phone: [phone] Echocardiogram Report + + :Name: CECY BECKFORD Study Date: 08/06/2024 Height: 71 in : :[facility] ReadingLocation: Weight: 290 lb : : Gender: Male BSA: 2.5 m2 : :: 1945 Age: 79 yrs BP: 149/84 mmHg: :Reason For Study: HEART FAILURE : :Ordering Physician: MENA VELAZQUEZ Performed By: Priyanka Conte : :Referring: MENA VELAZQUEZ : + + Interpretation Summary 1. The left ventricular contractility is normal. Estimate ejection fraction is greater than 55% with no segmental wall motion abnormalities. Mild concentric LVH. Grade 1 diastolic dysfunction. 2. The right ventricle contractility is normal. 3. All cardiac chambers are of normal size. 4. Mild aortic insufficiency. 5. No obvious intracardiac shunts. 6. No obvious intracardiac masses nor thrombi. 7. No hemodynamically significant pericardial effusion. 8. Low right-sided filling pressures. 9. Borderline enlargement of the aortic root as well as the ascending thoracic aorta without obvious dissection. Conclusion: Normal biventricular systolic function with mild aortic insufficiency. When compared to previous echocardiogram, there is mild aortic insufficiency present. No changes seems to have occurred in the dimensions of the aortic root and ascending thoracic aorta. Procedure: A two-dimensional transthoracic echocardiogram with color flow and Doppler was performed. The study quality was technically adequate. Comparison is made with the echocardiogram of 08/16/2023. The patient had occasional PVCs during the exam. The patient was in sinus rhythm with heart rates between 63-67 bpm during the exam. Left Ventricle: The left ventricle is normal in size. There is mild concentric left ventricular hypertrophy. The ejection fraction is estimated to be 55-60%. Right Ventricle: The right ventricle is normal in size and function. Atria: The left atrial size is normal. Right atrial size is normal. There is no Doppler evidence for an interatrial shunt. Mitral Valve: There is mild mitral annular calcification. The mitral valve leaflets appear to open well. There is no mitral regurgitation noted. Aortic Valve: The aortic valve is trileaflet. There is no aortic valve stenosis. There is mild aortic regurgitation. Tricuspid Valve: The tricuspid valve leaflets are thin and pliable. There is mild tricuspid regurgitation. The right ventricular systolic pressure is estimated to be at least 28 mmHg based on an estimated right atrial pressure of 3 mm Hg. Pulmonic Valve: The pulmonic valve is not well visualized. There is no pulmonic valvular regurgitation. Great Vessels: The aortic root is borderline dilated. The ascending aorta is mildly enlarged. The IVC is of normal diameter and collapses greater than 50% with a sniff. This suggests a low right atrial pressure of 3 mm Hg. Pericardium/ Pleura There is no pericardial effusion. There is no pleural effusion. MMode/2D Measurements & Calculations LVIDd: 4.9 cm LVOT diam: 2.1 cm LVIDs: 3.2 cm Ao root diam: 4.0 cm FS: 35.0 % asc Aorta Diam: 3.8 cm IVSd: 1.1 cm Ao Arch Diam (Prox Trans): 2.4 cm LVPWd: 1.2 cm LV jacobsen. diameter/BSA (cm/m^2): 2.0 LV sys. diameter/BSA (cm/m^2): 1.3 LA A2 area: 22.7 cm2 RA long axis: 4.3 cm LA A4 area: 19.4 cm2 RA area: 14.3 cm2 LA length (vol): 5.4 cm RA vol: 40.1 ml LA vol: 69.3 ml RA : 16.2 ml/m2 LA vol index: 28.1 ml/m2 IVC diam: 1.1 cm RVD1 (basal): 3.4 cm RVD2 (mid): 2.7 cm TAPSE: 1.9 cm Doppler Measurements & Calculations Ao V2 max: 133.5 cm/sec LVOT Max Jono: 93.0 cm/sec Ao V2 mean: 88.7 cm/sec LV V1 max P.5 mmHg Ao max P.1 mmHg LV V1 VTI: 22.6 cm Ao mean P.6 mmHg STEFANI(I,D): 2.9 cm2 Ao V2 VTI: 28.0 cm STEFANI(V,D): 2.5 cm2 sev ratio: 0.81 STEFANI indexed to BSA (cm^2/m^2): 1.2 MV E max jono: 51.1 cm/sec TR max jono: 250.1 cm/sec MV A max jono: 86.9 cm/sec TR max P.0 mmHg MV E/A: 0.59 PA V2 max: 99.6 cm/sec Med Peak E' Jono: 6.3 cm/sec PA V2 mean: 72.9 cm/sec E/E' med: 8.0 PA mean P.3 mmHg Lat Peak E' Jono: 5.9 cm/sec PA pr(Accel): 1.9 mmHg E/E' lat: 8.7 E/e' average: 8.4 MV dec time: 0.34 sec SV(LVOT): 81.5 ml Reading Physician:
== END ==
PROVIDERS: PCP Family Medicine; Referring Provider Internal Medicine; Visit Provider Internal Medicine
DX: I34.81 Nonrheumatic mitral (valve) annulus calcification (principal); I35.0 Nonrheumatic aortic (valve) stenosis; I50.22 Chronic systolic (congestive) heart failure; I77.89 Other specified disorders of arteries and arterioles
CPT/HCPCS: 93306